=== PATIENT | female | born 1980 | race Caucasian/White ===

== ENCOUNTER → 2016-10-30 | Outpatient (CLI) | payer BC ==
[~2016-10-30] MED LIST: AMIT50TA3 PO; EPP3/2 IM; LYR50 PO; MEDR150I IM; MULTTAB58 PO
--- NOTE | 2016-11-28 06:58 | CODING QUERY NO DIAGNOSIS ---
: 1980 TREATMENT RENDERED WITHOUT A DIAGNOSIS To promote full compliance with coding requirements relating to patient care, physician participation is requested in all cases of accounting reconciliation clerk uncertainty. Please assist us with providing a diagnosis/symptom for the test(s) below: A diagnosis/symptom was not documented on your Order. A valid diagnosis/symptom is required to bill all insurances. Please remember that we are unable to code a diagnosis of rule out, probable, possible, questionable, or suspected. Tests that require a diagnosis: DOS: 10/30/16 * Dexa, Bone Density Axial DIAGNOSIS: Provider Signature: Date: Thank you Ana [facility] [employer] [facility] Once completed, please kindly fax back to [phone] For questions please call [phone]
--- NOTE | 2016-12-15 11:31 | CODING QUERY MEDICAL NECESSITY ---
SUPPORTING DIAGNOSIS NEEDED A supporting diagnosis is required for the test/procedure performed on this patient in order for us to be reimbursed by the patient's insurance. Please provide a supporting diagnosis for the following test/procedure listed below next to the test name along with your signature. *If there is no additional diagnosis for this patient that would support the following test/procedure please document that below next to the test/procedure. Test(s)/Procedure(s) that require a supporting diagnosis: * DXA, BONE DENSITY AXIAL DIAGNOSIS: Provider Signature: Date: Thank you Jennie [facility] [employer] Once completed, please kindly fax back to [phone] For questions please call [phone]
== END | disposition home or self-care (01) ==
LOC: C.MAMM 14:02
PROVIDERS: ATTEND Family Medicine
DX: Z30.9 Encounter for contraceptive management, unspecified (principal); G89.29 Other chronic pain; M54.5 Low back pain; Z79.890 Hormone replacement therapy; Z13.820 Encounter for screening for osteoporosis; F17.200 Nicotine dependence, unspecified, uncomplicated

== ENCOUNTER 2022-07-09 15:21 | Observation (INO) ==
[2022-07-09] MEDS ORDERED: ONDANSETRON INJ 2 MG/ML 2 ML VIAL IV STA (15:43)
[2022-07-09 16:52] LABS: Basophils # (auto) 0.04 K/uL (0-0.2); Basophils % (auto) 0.3 %; Eosinophils # (auto) 0.02 K/uL (0-0.50); Eosinophils % (auto) 0.1 %; Hemoglobin 15.7 g/dl (12.0-16.0); Immature Granulocytes # (auto) 0.05 K/uL (0.00-0.02); Immature Granulocytes % (auto) 0.3 %; Lymphocytes # (auto) 0.79 K/uL (1.2-3.4); Lymphocytes % (auto) 5.2 %; Mean Corpuscular Hemoglobin 31.2 pg (25.0-34.0); Mean Corpuscular Hgb Conc 35.7 g/dL (32.0-36.0); Mean Corpuscular Volume 87.3 fL (80.0-100.0); Mean Platelet Volume 11.3 fL (9.4-12.3); Monocytes # (auto) 0.69 K/uL (0.24-0.82); Monocytes % (auto) 4.5 %; Neutrophils % (auto) 89.6 %; Platelet Count 343 K/uL (130-400); RDW Coefficient of Variation 13.6 % (11.5-14.5); RDW Standard Deviation 43.7 fL (36.4-46.3); Red Blood Count 5.04 M/uL (3.93-5.22); White Blood Count 15.19 K/ul (4.8-10.8)
[2022-07-09] MEDS ORDERED: MoRPHine SULFATE 4 MG/ML 1 ML CARP\\VIAL IV STA ×2 (17:00→19:01)
[2022-07-09 17:17] LABS: iSTAT Creatinine 0.6 mg/dl (0.6-1.3); iSTAT Hemoglobin 13.6 g/dl (12.0-16.0); iSTAT Ionized Calcium 1.06 mmol/l (1.12-1.32)
[2022-07-09 17:18] LABS: Albumin Globulin Ratio 1.5 (0.9-2); Albumin Level 4.4 gm/dl (3.4-5.0); BUN Creatinine Ratio 9.6 (10-20); Bilirubin,Total 0.5 mg/dl (0.2-1.0); Calcium 9.7 mg/dl (8.5-10.1); Creatinine Clr Calc Pharmacy 114.5 ml/min; Est GFR (African American) 116.1 ml/min; Est GFR (Non-African American) 100.2 ml/min; Globulin 2.9 gm/dl (2.5-4.0); Potassium 4.2 mmol/L (3.5-5.1); Total Protein 7.3 gm/dl (6.0-8.3)
--- NOTE | 2022-07-09 18:08 | Emergency Department Note ---
History of Present Illness General Chief complaint: Illness Stated complaint: VOMITING, ABD PAIN, WEAKNESS Time Seen by Provider: 07/09/22 16:51 History of Present Illness Provider complaint: Nausea vomiting abdominal pain Onset (ago): day(s) 2 Maximum Pain Intensity: 10 42-year-old female presents emergency department for nausea vomiting and abdominal pain. Patient reports her symptoms again 2 days ago. She reports she feels chills but no fevers. She denies any headache. Patient is refusing to answer any other questions. Home Medications Medication Instructions Recorded Confirmed Type amitriptyline 50 mg tablet 50 mg PO HS 06/15/21 07/09/22 History epinephrine 0.3 mg/0.3 mL 0.3 mg IM DIRECTED PRN Allergic 06/15/21 07/09/22 History injection, auto-injector Reaction pregabalin 200 mg capsule 200 mg PO TID 06/15/21 07/09/22 History duloxetine 30 mg capsule,delayed See Rx Instructions .Route .COMPLEX 07/09/22 07/09/22 History release voriconazole 200 mg tablet 200 mg PO BID 07/09/22 07/09/22 History voriconazole 50 mg tablet 150 mg PO BID 07/09/22 07/09/22 History Allergies Allergy/AdvReac Type Severity Reaction Status Date / Time bee venom protein (honey bee) Allergy Severe SHORTNESS Verified 07/09/22 19:03 OF BREATH carbamazepine AdvReac Severe severe flu Verified 07/09/22 19:03 like symptoms topiramate AdvReac Intermediate Depression Verified 07/09/22 19:03 ketorolac [From Toradol] AdvReac Unknown Unknown Verified 07/09/22 19:03 Past Med/Surg History Medical History Abdominal pain Blastomycosis Hand laceration No pertinent family history Trigeminal neuralgia Viral meningitis Surgical History No pertinent past surgical history Social History Smoking Status: Never smoker Hx Alcohol Use: No Hx Substance Use: Yes Preferred Language: Canadian Communication Ability: Effective Director Learning Services Required: No Beliefs That Will Affect Care: None Current Living Situation: Spouse Feels Safe at Home: Yes Physical Exam Vital Signs Vital Signs - 24 hr 07/09/22 15:40 07/09/22 17:32 07/09/22 21:00 Temperature 36.2 C L Temperature Source Temporal Artery Scan Pulse Rate 65 Pulse Rate [Right Finger] 90 86 Pulse Rhythm [Right Finger] Regular Pulse Strength [Right Finger] Normal Respiratory Rate 19 18 18 Respiratory Effort / Characteristics Non-Labored Spontaneous Non-Labored Non-Labored Spontaneous Respiratory Depth Normal Normal Normal Respiratory Pattern Regular Regular Regular Blood Pressure 142/56 H Blood Pressure [Left Arm] 120/86 136/81 Blood Pressure Mean 84 Blood Pressure Mean [Left Arm] 97 99 Blood Pressure Position [Left Arm] Lying Pulse Oximetry 100 100 96 Oxygen Delivery Method Room Air Room Air Room Air Sepsis Recent Fever Within 48 Hours No Sepsis New/Unexplained Change in Mental Status N/A Sepsis Action Taken by Nursing No Action Required 07/09/22 21:56 Temperature Temperature Source Pulse Rate Pulse Rate [Right Finger] Pulse Rhythm [Right Finger] Pulse Strength [Right Finger] Respiratory Rate Respiratory Effort / Characteristics Respiratory Depth Respiratory Pattern Blood Pressure Blood Pressure [Left Arm] Blood Pressure Mean Blood Pressure Mean [Left Arm] Blood Pressure Position [Left Arm] Pulse Oximetry Oxygen Delivery Method Room Air Sepsis Recent Fever Within 48 Hours Sepsis New/Unexplained Change in Mental Status Sepsis Action Taken by Nursing Physical Exam HENT: Exam performed. -Head: Normocephalic and atraumatic. EYES: Conjunctivae and EOM are normal. Pupils are equal, round, and reactive to light. Right eye exhibits no discharge. Left eye exhibits no discharge. No scleral icterus. NECK: Normal range of motion. Neck supple. No JVD present. CV: Normal rate, regular rhythm, normal heart sounds and intact distal pulses. There is no peripheral edema. Palpable radial pulses bue. PULM/CHEST: Effort normal and breath sounds normal. No respiratory distress. No stridor. She has no wheezes. She has no rales. -Chest Wall: She exhibits no tenderness. ABD: The abdomen is soft. Bowel sounds are normal. Diffuse tenderness to palpation. There is no rebound, no guarding, MUSC/SKEL: Normal range of motion. There is no peripheral edema, tenderness or deformity. NEURO: She is alert and oriented to person, place, and time. She has normal strength. No cranial nerve deficit or sensory deficit. Coordination and gait normal. GCS eye subscore is 4. GCS verbal subscore is 5. GCS motor subscore is 6. Cerebellar tests wnl. PSYCH: Bizarre affect. Course Course 1650: The patient was evaluated in room D8. A complete history and physical exam was performed Cardiac monitoring: An order was placed for continuous cardiac monitoring. The monitor shows a rate of 90 with sinus rhythm 1930: Vital signs stable. Labs with leukocytosis of 15. Alkaline phosphatase 171. Lipase and AST ALT within normal limits. Imaging shows acute cholecy stitis. Discussed case with bed and general surgery PA he states admit to medicine. Patient be admitted to the [facility] medicine team. Antibiotics IV ordered for the patient. Administered Medications Discontinued Medications Diphenhydramine HCl (Diphenhydramine 50 Mg/Ml Vial) 25 mg IV NOW STA Stop: 07/09/22 19:06 Last Admin: 07/09/22 19:12 Dose: 25 mg Documented By: Ciprofloxacin (Cipro / D5w) 400 mg in 200 mls @ 100 mls/hr IV NOW STA; Protocol Stop: 07/09/22 21:00 Last Infusion: 07/09/22 21:21 Dose: 0 mls/hr Documented By: Admin: 07/09/22 19:16 Dose: 100 mls/hr Documented By: Metronidazole (Flagyl) 500 mg in 100 mls @ 100 mls/hr IV NOW STA Stop: 07/09/22 20:00 Last Infusion: 07/09/22 21:21 Dose: 0 mls/hr Documented By: Admin: 07/09/22 19:44 Dose: 100 mls/hr Documented By: Ioversol (Optiray 350 100ml) 80 ml IV ONCE ONE Stop: 07/09/22 18:42 Last Admin: 07/09/22 18:41 Dose: 80 ml Documented By: JAVIER Metoclopramide HCl (Metoclopramide Hcl Inj 5 Mg/Ml 2 Ml Vial) 5 mg IV ONE ONE Stop: 07/09/22 19:06 Last Admin: 07/09/22 19:11 Dose: 5 mg Documented By: Morphine Sulfate (Morphine Sulfate 4 Mg/Ml 1 Ml Carp\Vial) 2 mg IV NOW STA Stop: 07/09/22 17:01 Last Admin: 07/09/22 17:16 Dose: 2 mg Documented By: ANDREW Morphine Sulfate (Morphine Sulfate 4 Mg/Ml 1 Ml Carp\Vial) 4 mg IV NOW STA Stop: 07/09/22 19:02 Last Admin: 07/09/22 19:16 Dose: 4 mg Documented By: Ondansetron HCl (Ondansetron Inj 2 Mg/Ml 2 Ml Vial) 4 mg IV NOW STA Stop: 07/09/22 15:44 Last Admin: 07/09/22 16:30 Dose: 4 mg Documented By: SHARIF Medical Decision Making Laboratory Data Attestation: I reviewed the patient's lab results. 07/09/22 16:34 07/09/22 16:34 Lab Results 07/09/22 07/09/22 07/09/22 Range/Units 05:19 16:34 16:34 WBC 15.19 H (4.8-10.8) K/ul RBC 5.04 (3.93-5.22) M/uL Hgb 15.7 (12.0-16.0) g/dl POC Hgb (12.0-16.0) g/dl Hct 44.0 (34.1-44.9) % POC Hct (37-47) % MCV 87.3 (80.0-100.0) fL MCH 31.2 (25.0-34.0) pg MCHC 35.7 (32.0-36.0) g/dL RDW Std Deviation 43.7 (36.4-46.3) fL RDW Coeff of Sunshine 13.6 (11.5-14.5) % Plt Count 343 (130-400) K/uL MPV 11.3 (9.4-12.3) fL Immature Gran % (Auto) 0.3 % Neut % (Auto) 89.6 % Lymph % (Auto) 5.2 % Swift % (Auto) 4.5 % Eos % (Auto) 0.1 % Baso % (Auto) 0.3 % Neut # (Auto) 13.60 H (1.4-6.5) K/uL Lymph # (Auto) 0.79 L (1.2-3.4) K/uL Swift # (Auto) 0.69 (0.24-0.82) K/uL Eos # (Auto) 0.02 (0-0.50) K/uL Baso # (Auto) 0.04 (0-0.2) K/uL Immature Gran # (Auto) 0.05 H (0.00-0.02) K/uL PT (9.0-12.0) Seconds INR (0.9-1.1) APTT (21.0-31.0) Seconds PTT Ratio VBG pH (7.36-7.41) VBG pCO2 (38-50) mmHg VBG pO2 mmHg VBG HCO3 mmol/L VBG O2 Saturation % VBG Base Excess mEq/L POC Sodium (135-144) mmol/L Sodium 140 (136-145) mmol/L POC Potassium (3.3-5.0) mmol/L Potassium 4.2 (3.5-5.1) mmol/L POC Chloride (101-112) mmol/L Chloride 106 (98-107) mmol/L Carbon Dioxide 23 (21-32) mmol/L POC Total CO2 (24-31) mmol/L Anion Gap 11 (3-11) POC Anion Gap (16-25) mmol/L POC BUN (7-18) mg/dl BUN 7 (6-23) mg/dl Creatinine 0.73 (0.6-1.2) mg/dl POC Creatinine (0.6-1.3) mg/dl Est Cr Clr Drug Dosing 114.5 ml/min Est GFR ( Amer) 116.1 ml/min Est GFR (Non-Af Amer) 100.2 ml/min BUN/Creatinine Ratio 9.6 L (10-20) Glucose 187 H (70-99(Fasting)) mg/dl POC Glucose (other) (70-99) mg/dl Lactate (0.4-2.0) mmol/L Calcium 9.7 (8.5-10.1) mg/dl POC Ioniz Calcium [place] (1.12-1.32) mmol/l Total Bilirubin 0.5 (0.2-1.0) mg/dl AST 26 (13-39) U/L ALT 23 (7-52) U/L Alkaline Phosphatase 171 H (34-104) U/L Ammonia (18-72) umol/L Total Protein 7.3 (6.0-8.3) gm/dl Albumin 4.4 (3.4-5.0) gm/dl Globulin 2.9 (2.5-4.0) gm/dl Albumin/Globulin Ratio 1.5 (0.9-2) Lipase 8 L (11-82) U/L Urine Color Urine Appearance (Clear) Urine pH (4.5-7.5) Ur Specific [place] (1.000-1.030) Urine Protein (Negative) Urine Glucose (UA) (Negative) Urine Ketones (Negative) Urine Blood (Negative) Urine Nitrite (Negative) Urine Bilirubin (Negative) Urine Urobilinogen (Negative) Ur Leukocyte Esterase (Negative) Urine WBC (Auto) (0-5) /hpf Urine RBC (Auto) (0-4) /hpf U Hyaline Cast (Auto) (0-5) /lpf U Epithel Cells (Auto) (0-5) /lpf Urine Bacteria (Auto) (Negative) Ur Renal Epithelial Cell Urine Mucus (None Prsent) Salicylates (3.0-30) mg/dl Urine Opiates Screen (Neg) Ur Methadone, Qual (Neg) Acetaminophen (10-30) ug/ml Urine Barbiturates (Neg) Ur Phencyclidine (PCP) (Neg) U Amphetamin/Meth Scrn (Neg) MDMA (Ecstasy) Screen (Neg) U Benzodiazepines Scrn (Neg) Ur Cocaine Metabolite (Neg) U Marijuana (THC) Screen (Neg) Adenovirus (PCR) Not Detected (NotDetected) B. pertussis DNA (PCR) Not Detected (NotDetected) B.parapertussis DNA PCR Not Detected (NotDetected) C. pneumoniae DNA (PCR) Not Detected (NotDetected) Coronavirus OC43 (PCR) Not Detected (NotDetected) Coronavirus HKU1 (PCR) Not Detected (NotDetected) Coronavirus 229E (PCR) Not Detected (NotDetected) SARS-CoV-2 (PCR) Not Detected (NotDetected) Coronavirus NL63 (PCR) Not Detected (NotDetected) Human Metapneumovir PCR Not Detected (NotDetected) Influenza Type A (PCR) Not Detected (NotDetected) Influenza Type B (PCR) Not Detected (NotDetected) M. pneumoniae (PCR) Not Detected (NotDetected) Parainfluenza 1 (PCR) Not Detected (NotDetected) Parainfluenza 2 (PCR) Not Detected (NotDetected) Parainfluenza 3 (PCR) Not Detected (NotDetected) Parainfluenza 4 (PCR) Not Detected (NotDetected) RSV (PCR) Not Detected (NotDetected) Entero/Rhino (PCR) Not Detected (NotDetected) 07/09/22 07/09/22 07/09/22 Range/Units 17:05 18:13 18:13 WBC (4.8-10.8) K/ul RBC (3.93-5.22) M/uL Hgb (12.0-16.0) g/dl POC Hgb 13.6 (12.0-16.0) g/dl Hct (34.1-44.9) % POC Hct 40 (37-47) % MCV (80.0-100.0) fL MCH (25.0-34.0) pg MCHC (32.0-36.0) g/dL RDW Std Deviation (36.4-46.3) fL RDW Coeff of Sunshine (11.5-14.5) % Plt Count (130-400) K/uL MPV (9.4-12.3) fL Immature Gran % (Auto) % Neut % (Auto) % Lymph % (Auto) % Swift % (Auto) % Eos % (Auto) % Baso % (Auto) % Neut # (Auto) (1.4-6.5) K/uL Lymph # (Auto) (1.2-3.4) K/uL [place] # (Auto) (0.24-0.82) K/uL Eos # (Auto) (0-0.50) K/uL Baso # (Auto) (0-0.2) K/uL Immature Gran # (Auto) (0.00-0.02) K/uL PT 11.3 (9.0-12.0) Seconds INR 1.1 (0.9-1.1) APTT 21.3 (21.0-31.0) Seconds PTT Ratio 0.8 VBG pH (7.36-7.41) VBG pCO2 (38-50) mmHg VBG pO2 mmHg VBG HCO3 mmol/L VBG O2 Saturation % VBG Base Excess mEq/L POC Sodium 141 (135-144) mmol/L Sodium (136-145) mmol/L POC Potassium 4.0 (3.3-5.0) mmol/L Potassium (3.5-5.1) mmol/L POC Chloride 107 (101-112) mmol/L Chloride (98-107) mmol/L Carbon Dioxide (21-32) mmol/L POC Total CO2 22 L (24-31) mmol/L Anion Gap (3-11) POC Anion Gap 17.0 (16-25) mmol/L POC BUN 6 L (7-18) mg/dl BUN (6-23) mg/dl Creatinine (0.6-1.2) mg/dl POC Creatinine 0.6 (0.6-1.3) mg/dl Est Cr Clr Drug Dosing ml/min Est GFR ( Amer) ml/min Est GFR (Non-Af Amer) ml/min BUN/Creatinine Ratio (10-20) Glucose (70-99(Fasting)) mg/dl POC Glucose (other) 172 H (70-99) mg/dl Lactate 1.7 (0.4-2.0) mmol/L Calcium (8.5-10.1) mg/dl POC Ioniz Calcium [place] 1.06 L (1.12-1.32) mmol/l Total Bilirubin (0.2-1.0) mg/dl AST (13-39) U/L ALT (7-52) U/L Alkaline Phosphatase (34-104) U/L Ammonia (18-72) umol/L Total Protein (6.0-8.3) gm/dl Albumin (3.4-5.0) gm/dl Globulin (2.5-4.0) gm/dl Albumin/Globulin Ratio (0.9-2) Lipase (11-82) U/L Urine Color Urine Appearance (Clear) Urine pH (4.5-7.5) Ur Specific [place] (1.000-1.030) Urine Protein (Negative) Urine Glucose (UA) (Negative) Urine Ketones (Negative) Urine Blood (Negative) Urine Nitrite (Negative) Urine Bilirubin (Negative) Urine Urobilinogen (Negative) Ur Leukocyte Esterase (Negative) Urine WBC (Auto) (0-5) /hpf Urine RBC (Auto) (0-4) /hpf U Hyaline Cast (Auto) (0-5) /lpf U Epithel Cells (Auto) (0-5) /lpf Urine Bacteria (Auto) (Negative) Ur Renal Epithelial Cell Urine Mucus (None Prsent) Salicylates (3.0-30) mg/dl Urine Opiates Screen (Neg) Ur Methadone, Qual (Neg) Acetaminophen (10-30) ug/ml Urine Barbiturates (Neg) Ur Phencyclidine (PCP) (Neg) U Amphetamin/Meth Scrn (Neg) MDMA (Ecstasy) Screen (Neg) U Benzodiazepines Scrn (Neg) Ur Cocaine Metabolite (Neg) U Marijuana (THC) Screen (Neg) Adenovirus (PCR) (NotDetected) B. pertussis DNA (PCR) (NotDetected) B.parapertussis DNA PCR (NotDetected) C. pneumoniae DNA (PCR) (NotDetected) Coronavirus OC43 (PCR) (NotDetected) Coronavirus HKU1 (PCR) (NotDetected) Coronavirus 229E (PCR) (NotDetected) SARS-CoV-2 (PCR) (NotDetected) Coronavirus NL63 (PCR) (NotDetected) Human Metapneumovir PCR (NotDetected) Influenza Type A (PCR) (NotDetected) Influenza Type B (PCR) (NotDetected) M. pneumoniae (PCR) (NotDetected) Parainfluenza 1 (PCR) (NotDetected) Parainfluenza 2 (PCR) (NotDetected) Parainfluenza 3 (PCR) (NotDetected) Parainfluenza 4 (PCR) (NotDetected) RSV (PCR) (NotDetected) Entero/Rhino (PCR) (NotDetected) 07/09/22 07/09/22 07/09/22 Range/Units 18:13 18:13 18:13 WBC (4.8-10.8) K/ul RBC (3.93-5.22) M/uL Hgb (12.0-16.0) g/dl POC Hgb (12.0-16.0) g/dl Hct (34.1-44.9) % POC Hct (37-47) % MCV (80.0-100.0) fL MCH (25.0-34.0) pg MCHC (32.0-36.0) g/dL RDW Std Deviation (36.4-46.3) fL RDW Coeff of Sunshine (11.5-14.5) % Plt Count (130-400) K/uL MPV (9.4-12.3) fL Immature Gran % (Auto) % Neut % (Auto) % Lymph % (Auto) % [place] % (Auto) % Eos % (Auto) % Baso % (Auto) % Neut # (Auto) (1.4-6.5) K/uL Lymph # (Auto) (1.2-3.4) K/uL [place] # (Auto) (0.24-0.82) K/uL Eos # (Auto) (0-0.50) K/uL Baso # (Auto) (0-0.2) K/uL Immature Gran # (Auto) (0.00-0.02) K/uL PT (9.0-12.0) Seconds INR (0.9-1.1) APTT (21.0-31.0) Seconds PTT Ratio VBG pH 7.54 H (7.36-7.41) VBG pCO2 25 L (38-50) mmHg VBG pO2 48 mmHg VBG HCO3 21 mmol/L VBG O2 Saturation 88.6 % VBG Base Excess 0.3 mEq/L POC Sodium (135-144) mmol/L Sodium (136-145) mmol/L POC Potassium (3.3-5.0) mmol/L Potassium (3.5-5.1) mmol/L POC Chloride (101-112) mmol/L Chloride (98-107) mmol/L Carbon Dioxide (21-32) mmol/L POC Total CO2 (24-31) mmol/L Anion Gap (3-11) POC Anion Gap (16-25) mmol/L POC BUN (7-18) mg/dl BUN (6-23) mg/dl Creatinine (0.6-1.2) mg/dl POC Creatinine (0.6-1.3) mg/dl Est Cr Clr Drug Dosing ml/min Est GFR ( Amer) ml/min Est GFR (Non-Af Amer) ml/min BUN/Creatinine Ratio (10-20) Glucose (70-99(Fasting)) mg/dl POC Glucose (other) (70-99) mg/dl Lactate (0.4-2.0) mmol/L Calcium (8.5-10.1) mg/dl POC Ioniz Calcium [place] (1.12-1.32) mmol/l Total Bilirubin (0.2-1.0) mg/dl AST (13-39) U/L ALT (7-52) U/L Alkaline Phosphatase (34-104) U/L Ammonia 33.0 (18-72) umol/L Total Protein (6.0-8.3) gm/dl Albumin (3.4-5.0) gm/dl Globulin (2.5-4.0) gm/dl Albumin/Globulin Ratio (0.9-2) Lipase (11-82) U/L Urine Color Urine Appearance (Clear) Urine pH (4.5-7.5) Ur Specific [place] (1.000-1.030) Urine Protein (Negative) Urine Glucose (UA) (Negative) Urine Ketones (Negative) Urine Blood (Negative) Urine Nitrite (Negative) Urine Bilirubin (Negative) Urine Urobilinogen (Negative) Ur Leukocyte Esterase (Negative) Urine WBC (Auto) (0-5) /hpf Urine RBC (Auto) (0-4) /hpf U Hyaline Cast (Auto) (0-5) /lpf U Epithel Cells (Auto) (0-5) /lpf Urine Bacteria (Auto) (Negative) Ur Renal Epithelial Cell Urine Mucus (None Prsent) Salicylates < 3.0 L (3.0-30) mg/dl Urine Opiates Screen (Neg) Ur Methadone, Qual (Neg) Acetaminophen < 3 L (10-30) ug/ml Urine Barbiturates (Neg) Ur Phencyclidine (PCP) (Neg) U Amphetamin/Meth Scrn (Neg) MDMA (Ecstasy) Screen (Neg) U Benzodiazepines Scrn (Neg) Ur Cocaine Metabolite (Neg) U Marijuana (THC) Screen (Neg) Adenovirus (PCR) (NotDetected) B. pertussis DNA (PCR) (NotDetected) B.parapertussis DNA PCR (NotDetected) C. pneumoniae DNA (PCR) (NotDetected) Coronavirus OC43 (PCR) (NotDetected) Coronavirus HKU1 (PCR) (NotDetected) Coronavirus 229E (PCR) (NotDetected) SARS-CoV-2 (PCR) (NotDetected) Coronavirus NL63 (PCR) (NotDetected) Human Metapneumovir PCR (NotDetected) Influenza Type A (PCR) (NotDetected) Influenza Type B (PCR) (NotDetected) M. pneumoniae (PCR) (NotDetected) Parainfluenza 1 (PCR) (NotDetected) Parainfluenza 2 (PCR) (NotDetected) Parainfluenza 3 (PCR) (NotDetected) Parainfluenza 4 (PCR) (NotDetected) RSV (PCR) (NotDetected) Entero/Rhino (PCR) (NotDetected) 07/09/22 07/09/22 Range/Units 19:39 19:39 WBC (4.8-10.8) K/ul RBC (3.93-5.22) M/uL Hgb (12.0-16.0) g/dl POC Hgb (12.0-16.0) g/dl Hct (34.1-44.9) % POC Hct (37-47) % MCV (80.0-100.0) fL MCH (25.0-34.0) pg MCHC (32.0-36.0) g/dL RDW Std Deviation (36.4-46.3) fL RDW Coeff of Sunshine (11.5-14.5) % Plt Count (130-400) K/uL MPV (9.4-12.3) fL Immature Gran % (Auto) % Neut % (Auto) % Lymph % (Auto) % [place] % (Auto) % Eos % (Auto) % Baso % (Auto) % Neut # (Auto) (1.4-6.5) K/uL Lymph # (Auto) (1.2-3.4) K/uL [place] # (Auto) (0.24-0.82) K/uL Eos # (Auto) (0-0.50) K/uL Baso # (Auto) (0-0.2) K/uL Immature Gran # (Auto) (0.00-0.02) K/uL PT (9.0-12.0) Seconds INR (0.9-1.1) APTT (21.0-31.0) Seconds PTT Ratio VBG pH (7.36-7.41) VBG pCO2 (38-50) mmHg VBG pO2 mmHg VBG HCO3 mmol/L VBG O2 Saturation % VBG Base Excess mEq/L POC Sodium (135-144) mmol/L Sodium (136-145) mmol/L POC Potassium (3.3-5.0) mmol/L Potassium (3.5-5.1) mmol/L POC Chloride (101-112) mmol/L Chloride (98-107) mmol/L Carbon Dioxide (21-32) mmol/L POC Total CO2 (24-31) mmol/L Anion Gap (3-11) POC Anion Gap (16-25) mmol/L POC BUN (7-18) mg/dl BUN (6-23) mg/dl Creatinine (0.6-1.2) mg/dl POC Creatinine (0.6-1.3) mg/dl Est Cr Clr Drug Dosing ml/min Est GFR ( Amer) ml/min Est GFR (Non-Af Amer) ml/min BUN/Creatinine Ratio (10-20) Glucose (70-99(Fasting)) mg/dl POC Glucose (other) (70-99) mg/dl Lactate (0.4-2.0) mmol/L Calcium (8.5-10.1) mg/dl POC Ioniz Calcium [place] (1.12-1.32) mmol/l Total Bilirubin (0.2-1.0) mg/dl AST (13-39) U/L ALT (7-52) U/L Alkaline Phosphatase (34-104) U/L Ammonia (18-72) umol/L Total Protein (6.0-8.3) gm/dl Albumin (3.4-5.0) gm/dl Globulin (2.5-4.0) gm/dl Albumin/Globulin Ratio (0.9-2) Lipase (11-82) U/L Urine Color Yellow Urine Appearance Clear (Clear) Urine pH 8.5 H (4.5-7.5) Ur Specific [place] > 1.045 H (1.000-1.030) Urine Protein 1+ H (Negative) Urine Glucose (UA) Negative (Negative) Urine Ketones 4+ H (Negative) Urine Blood Negative (Negative) Urine Nitrite Negative (Negative) Urine Bilirubin Negative (Negative) Urine Urobilinogen Negative (Negative) Ur Leukocyte Esterase Negative (Negative) Urine WBC (Auto) 5-10 H (0-5) /hpf Urine RBC (Auto) 0-4 (0-4) /hpf U Hyaline Cast (Auto) 5-10 H (0-5) /lpf U Epithel Cells (Auto) >30 H (0-5) /lpf Urine Bacteria (Auto) 1+ H (Negative) Ur Renal Epithelial Cell Not Reportable Urine Mucus Present A (None Prsent) Salicylates (3.0-30) mg/dl Urine Opiates Screen Pos H (Neg) Ur Methadone, Qual Neg (Neg) Acetaminophen (10-30) ug/ml Urine Barbiturates Neg (Neg) Ur Phencyclidine (PCP) Neg (Neg) U Amphetamin/Meth Scrn Neg (Neg) MDMA (Ecstasy) Screen Neg (Neg) U Benzodiazepines Scrn Neg (Neg) Ur Cocaine Metabolite Neg (Neg) U Marijuana (THC) Screen Pos H (Neg) Adenovirus (PCR) (NotDetected) B. pertussis DNA (PCR) (NotDetected) B.parapertussis DNA PCR (NotDetected) C. pneumoniae DNA (PCR) (NotDetected) Coronavirus OC43 (PCR) (NotDetected) Coronavirus HKU1 (PCR) (NotDetected) Coronavirus 229E (PCR) (NotDetected) SARS-CoV-2 (PCR) (NotDetected) Coronavirus NL63 (PCR) (NotDetected) Human Metapneumovir PCR (NotDetected) Influenza Type A (PCR) (NotDetected) Influenza Type B (PCR) (NotDetected) M. pneumoniae (PCR) (NotDetected) Parainfluenza 1 (PCR) (NotDetected) Parainfluenza 2 (PCR) (NotDetected) Parainfluenza 3 (PCR) (NotDetected) Parainfluenza 4 (PCR) (NotDetected) RSV (PCR) (NotDetected) Entero/Rhino (PCR) (NotDetected) Imaging Data Radiologist's Impression: Abdomen/Pelvis CT 07/09/22 16:[address] WITH IV CONTRAST CT DOSE: 839.62 mGy.cm HISTORY: Nausea. Vomiting. Generalized abdominal pain. TECHNIQUE: Multiaxial CT images of the abdomen and pelvis were performed following the use of intravenous contrast. A dose lowering technique was utilized adhering to the principles of ALARA. COMPARISON STUDY: Abdomen and pelvis CT 09/01/2013. PET CT 07/22/2021. FINDINGS: The lung bases are clear. No pneumoperitoneum. No pneumatosis. No suspicious lytic are blastic osseous lesions. There is mild motion artifact. Fo jose miguel hypodensity within segment IVb of the liver favors focal fat. No definite hepatic or splenic masses. The adrenal glands, pancreas, and right kidney are unremarkable. Stable 6 mm hypodense lesion within the left kidney. This favors a cyst but is technically too small to characterize. No hydronephrosis. The bladder, uterus, bilateral adnexa are within normal limits. No retroperitoneal or pelvic lymphadenopathy. The main portal vein is patent. Normal caliber abdominal aorta. The gallbladder is mildly distended with diffuse gallbladder wall thickening/edema and pericholecystic fluid. There is a small amount of sludge within the gallbladder. An acute cholecystitis would be the diagnosis of exclusion. Trace pelvic free fluid. This may be physiologic. A few colonic diverticula. No evidence for acute diverticulitis. No bowel wall thickening or obstruction. Normal appendix. Fluid-filled nondilated colon. IMPRESSION: 1. The gallbladder is mildly distended with diffuse gallbladder wall thickening/edema and pericholecystic fluid. There is a small amount of sludge within the gallbladder. An acute cholecystitis would be the diagnosis of ex clusion. 2. Fluid-filled nondilated colon. This may represent a diarrheal illness/gastr oenteritis. 3. Normal appendix. 4. No evidence for a bowel obstruction. ACT 112: Negative or not required by law. Electronically signed by: Polo Clayton M.D. 07/09/2022 6:[address] 07/09/22 16:[address] DOSE: 773.57 mGy.cm HISTORY: confusion TECHNIQUE: Multiaxial CT images of the head were performed without the use of intravenous contrast. Automated exposure control was utilized for this study. A dose lowering technique was utilized adhering to the principles of ALARA. Comparison: Head CT 09/06/2013. Findings: The paranasal sinuses and mastoid air cells are clear. Prior suboccipital craniectomy. No calvarial fractures. The ventricles and sulci are within normal limits. There is no mass, hematoma, midline shift, or acute inf arct. Impression: No acute intracranial abnormality. ACT 112: Negative or not required by law. Electronically signed by: Polo Clayton M.D. 07/09/2022 6:54 PM Chest X-Ray 07/09/22 16:59 XR chest 1V portable HISTORY: Altered mental status. Atypical chest pain. COMPARISON: Chest 07/29/2021. FINDINGS: The lungs are clear. Cardiac silhouette is normal in size. No pleural effusions. No pneumothorax. IMPRESSION: No acute process. ACT 112: Negative or not required by law. Electronically signed by: Polo Clayton M.D. 07/09/2022 6:08 PM MDM Narrative Vital signs stable. Labs with leukocytosis of 15. Alkaline phosphatase 171. Lipase and AST ALT within normal limits. Imaging shows acute cholecystitis. Discussed case with bed and general surgery PA he states admit to medicine. Patient be admitted to the [facility] medicine team. Antibiotics IV ordered for the patient. Impression & Plan Acute cholecystitis Discharge Plan Visit Data Chief Complaint: Illness Stated Complaint: VOMITING, ABD PAIN, WEAKNESS ED Provider: Javed Wang Discharge Problem: Acute cholecystitis Patient Disposition: Admitted As Inpatient Discharge Instructions Interventions: ED Discharge Assessment Last Done: 07/09/22 21:56 Forms Stand Alone Forms: My [facility] Prescriptions Prescriptions: No Action voriconazole 50 mg tablet 150 mg PO BID Rx Instructions: TOTAL DOSE 350 MG--TAKES WITH 200 MG TAB. voriconazole 200 mg tablet 200 mg PO BID Rx Instructions: TOTAL DOSE 350 MG--TAKES WITH 3-50 MG TAB.S duloxetine 30 mg capsule,delayed release(DR/EC) See Rx Instructions .ROUTE .COMPLEX Rx Instructions: 30 mg orally; TAKES 30 MG QAM, THEN 60 MG QPM. amitriptyline 50 mg tablet 50 mg PO HS epinephrine 0.3 mg/0.3 mL auto-injector 0.3 mg IM DIRECTED PRN (Reason: Allergic Reaction) pregabalin 200 mg capsule 200 mg PO TID Referrals Referrals: Tess Mchugh DO [Primary Care Provider] -
[2022-07-09 18:27] LABS: Base Excess VBG 0.3 mEq/L; HCO3 VBG 21 mmol/L; Oxygen Saturation VBG 88.6 %; PCO2 VBG 25 mmHg (38-50); PO2 VBG 48 mmHg; pH VBG 7.54 (7.36-7.41)
[2022-07-09] MEDS ORDERED: OPTIRAY 350 100ml IV ONE (18:41)
[2022-07-09 18:43] LABS: Acetaminophen < 3 ug/ml (10-30); INR 1.1 (0.9-1.1); Partial Thromboplastin Ratio 0.8; Partial Thromboplastin Time 21.3 Seconds (21.0-31.0); Prothrombin Time 11.3 Seconds (9.0-12.0); Salicylate < 3.0 mg/dl (3.0-30)
--- NOTE | 2022-07-09 18:55 | CT Scan Report ---
ABDOMEN AND PELVIS CT WITH IV CONTRAST CT DOSE: 839.62 mGy.cm HISTORY: Nausea. Vomiting. Generalized abdominal pain. TECHNIQUE: Multiaxial CT images of the abdomen and pelvis were performed following the use of intrave nous contrast. A dose lowering technique was utilized adhering to the principles of ALARA. COMPARISON STUDY: Abdomen and pelvis CT 09/01/2013. PET CT 07/22/2021. FINDINGS: The lung bases are clear. No pneumoperitoneum. No pneumatosis. No suspicious lytic are karlos tic osseous lesions. There is mild motion artifact. Focal hypodensity within segment IVb of the liver favors focal fat. No definite hepatic or splenic masses. The adrenal glands, pancreas, and right kid doris are unremarkable. Stable 6 mm hypodense lesion within the left kidney. This favors a cyst but is technically too small to characterize. No hydronephrosis. The bladder, uterus, bilateral adnexa are w ithin normal limits. No retroperitoneal or pelvic lymphadenopathy. The main portal vein is patent. No rmal caliber abdominal aorta. The gallbladder is mildly distended with diffuse gallbladder wall thick ening/edema and pericholecystic fluid. There is a small amount of sludge within the gallbladder. An a cute cholecystitis would be the diagnosis of exclusion. Trace pelvic free fluid. This may be physiolo gic. A few colonic diverticula. No evidence for acute diverticulitis. No bowel wall thickening or obs truction. Normal appendix. Fluid-filled nondilated colon. IMPRESSION: 1. The gallbladder is mildly distended with diffuse gallbladder wall thickening/edema and pericholecy stic fluid. There is a small amount of sludge within the gallbladder. An acute cholecystitis would be the diagnosis of exclusion. 2. Fluid-filled nondilated colon. This may represent a diarrheal illness/gastroenteritis. 3. Normal appendix. 4. No evidence for a bowel obstruction. ACT 112: Negative or not required by law. Electronically signed by: Polo Clayton M.D. 07/09/2022 6:52 PM
--- NOTE | 2022-07-09 18:56 | CT Scan Report ---
HEAD CT NONCONTRAST CT DOSE: 773.57 mGy.cm HISTORY: confusion TECHNIQUE: Multiaxial CT images of the head were performed without the use of intravenous contrast. A utomated exposure control was utilized for this study. A dose lowering technique was utilized adheri ng to the principles of ALARA. Comparison: Head CT 09/06/2013. Findings: The paranasal sinuses and mastoid air cells are clear. Prior suboccipital craniectomy. No c alvarial fractures. The ventricles and sulci are within normal limits. There is no mass, hematoma, mi dline shift, or acute infarct. Impression: No acute intracranial abnormality. ACT 112: Negative or not required by law. Electronically signed by: Polo Clayton M.D. 07/09/2022 6:54 PM
[2022-07-09] MEDS ORDERED: metroNIDAZOLE 500 MG/100 ML BAG IV STA (19:01)
[2022-07-09] MEDS ORDERED: CIPROFLOXACIN / D5W 400 MG/200 ML BAG IV STA (19:01)
[2022-07-09] MEDS ORDERED: METOCLOPRAMIDE HCL INJ 5 MG/ML 2 ML VIAL IV ONE (19:05)
[2022-07-09] MEDS ORDERED: diphenhydrAMINE 50 MG/ML VIAL IV STA (19:05)
[2022-07-09 19:11] LABS: Adenovirus PCR Not Detected (NotDetected); Bordetella parapertussis PCR Not Detected (NotDetected); Bordetella pertussis PCR Not Detected (NotDetected); Chlamydia pneumoniae PCR Not Detected (NotDetected); Coronavirus 229E PCR Not Detected (NotDetected); Coronavirus CoV-2 (COVID19)PCR Not Detected (NotDetected); Coronavirus HKU1 PCR Not Detected (NotDetected); Coronavirus NL63 PCR Not Detected (NotDetected); Coronavirus OC43PCR Not Detected (NotDetected); Human Metapneumovirus PCR Not Detected (NotDetected); Influenza A PCR Not Detected (NotDetected); Influenza B PCR Not Detected (NotDetected); Mycoplasma pneumoniae PCR Not Detected (NotDetected); Parainfluenza Virus 1 PCR Not Detected (NotDetected); Parainfluenza Virus 2 PCR Not Detected (NotDetected); Parainfluenza Virus 3 PCR Not Detected (NotDetected); Parainfluenza Virus 4 PCR Not Detected (NotDetected); Respiratory Syncytial VirusPCR Not Detected (NotDetected); Rhinovirus/Enterovirus PCR Not Detected (NotDetected)
--- NOTE | 2022-07-09 19:53 | Surgery Consultation ---
Date of Consultation July 09, 2022 Assessment & Plan (1) Abdominal pain: I discussed the case with the treating emergency room physician and see he is having the patient admitted on the hospitalist service. Regarding the patient's abdominal pain the etiology has not been definitively ascertained. By CAT scan the patient may have an element of gastroenteritis but certainly acute cholecystitis has not been excluded. We therefore recommend proceeding as follows: To further delineate the patient's possibility of acute cholecystitis we will obtain a gallbladder ultrasound (this has been ordered). If the gallbladder ultrasound does not convincingly show evidence of acute cholecystitis consideration can be given to performing a HIDA scan We will follow serial labs. Although the patient does not have elevated LFTs or elevated lipase we will repeat these values in the morning to see if there is any change and act accordingly (repeat labs have been ordered) Provide analgesics Provide antiemetics Provide IV fluid for hydration Feel it is reasonable for patient to have clear liquids this evening up until midnight which I have ordered. I then made the patient n.p.o. after midnight in case she would require cholecystectomy tomorrow. Would recommend continuing patient on antibiotics. Cipro and Flagyl have been initiated by the treating emergency room physician and these can be continued at the discretion of the admitting service. As noted above is not clear if the patient has acute cholecystitis and we await the above pending studies. We will make her n.p.o. after midnight that way if it is determined she does have cholecystitis she will be ready for surgery. As noted above if the ultrasound is inconclusive we will consider performing a HIDA scan. Further recommendations will be made based on her clinical course as unfolds and pending studies as noted above. History of Present Illness Reason for Consultation: Abdominal pain History of Present Illness This is a 42-year-old female who presented to [facility] emergency department secondary to abdominal pain along with nausea and vomiting. The patient notes that she was in her usual state of health feeling fine until yesterday approximately 6 hours after eating a [employer] salad she had a gradual feeling of being unwell and developed some nausea and vomiting. Patient says that her nausea and vomiting persisted and she also developed some right upper quadrant as well as epigastric abdominal pain. She says that the pain did not radiate and she did not note any modifying factors. She denies any fevers, shakes, or chills. No close contacts have been ill. In addition to the above- noted symptoms she did have some diarrhea. I asked the patient about eating habits over the past several months and she denies any postprandial pain during this timeframe. It is noteworthy mention that she has never had any prior abdominal surgeries. In addition, the patient was noted to have a lung mass back in July of this year. This mass was biopsied and she received a diagnosis of blastomycosis and she has been on an antifungal in the form of voriconazole since that time. Since arrival to the emergency department the patient has had labs and imaging which I independently reviewed. CBC revealed white blood cell count was elevated at 15.1. Hemoglobin, hematocrit, platelet count were all within normal range. Coagulation studies were noted to be normal. A chemistry profile showed sodium and potassium were normal. Her BUN and creatinine were also noted to be normal. Lactic acid was nonelevated. Total bilirubin and transaminases were nonelevated. Her lipase was not elevated. Alkaline phosphatase was slightly elevated at 171. Patient did have toxicology for salicylates as well as acetaminophen checked which were nonelevated. The patient was checked for various viral serologies all of which were negative (this included adenovirus, pertussis, parainfluenza, RSV, enterovirus, influenza a and B, and COVID). Imaging was performed which was also independent reviewed and chest x-ray showed no evidence of pneumonia. A CT scan of the head showed no acute intracranial abnormalities.A CT scan of the abdomen pelvis was performed. The gallbladder is noted to be mildly distended with diffuse gallbladder wall thickening and some pericholecystic fluid noted small amount of sludge was noted in the gallbladder. Acute cholecystitis could not definitively be ascertained from the study. The patient's colon also appeared fluid-filled and nondilated perhaps representing an element of gastroenteritis. Her appendix was noted be normal in the study and there is no evidence of bowel obstruction. Since arrival to the hospital the patient has received analgesics in the form of 6 mg of morphine.She has received antiemetics in the form of Reglan and Zofran. She is also received Benadryl. Antibiotics in form of Cipro and Flagyl have been initiated. At the time of my interview she was resting comfortably in bed and she was in no distress. Her pain had improved. Allergies Allergy/AdvReac Type Severity Reaction Status Date / Time bee venom protein (honey bee) Allergy Severe SHORTNESS Verified 07/09/22 19:03 OF BREATH carbamazepine AdvReac Severe severe flu Verified 07/09/22 19:03 like symptoms topiramate AdvReac Intermediate Depression Verified 07/09/22 19:03 ketorolac [From Toradol] AdvReac Unknown Unknown Verified 07/09/22 19:03 Home Medications Medication Instructions Recorded Confirmed Type amitriptyline 50 mg tablet 50 mg PO HS 06/15/21 07/09/22 History epinephrine 0.3 mg/0.3 mL 0.3 mg IM DIRECTED PRN Allergic 06/15/21 07/09/22 History injection, auto-injector Reaction pregabalin 200 mg capsule 200 mg PO TID 06/15/21 07/09/22 History duloxetine 30 mg capsule,delayed See Rx Instructions .Route .COMPLEX 07/09/22 07/09/22 History release voriconazole 200 mg tablet 200 mg PO BID 07/09/22 07/09/22 History voriconazole 50 mg tablet 150 mg PO BID 07/09/22 07/09/22 History Patient History Medical History Abdominal pain Blastomycosis Hand laceration No pertinent family history Trigeminal neuralgia Viral meningitis Surgical History No pertinent past surgical history Social History Smoking Status: Never smoker Hx Alcohol Use: No Hx Substance Use: Yes Preferred Language: Slovenian Communication Ability: Effective Commissioning Manager Required: No Beliefs That Will Affect Care: None Current Living Situation: Spouse Feels Safe at Home: Yes Review of Systems Constitutional: no fever and no chills Eyes: no eye pain Ear, Nose, Mouth, Throat: no ear pain Respiratory: no cough and no dyspnea Cardiovascular: no chest pain Gastrointestinal: as per Subjective / HPI, + abdominal pain, + nausea, + vomiting and + diarrhea/loose stools Genitourinary: no dysuria Musculoskeletal: no back pain Integumentary: no rash Neurologic: no localized weakness Physical Exam Constitutional: WD/WN, vitals as above Eyes: + anicteric sclerae ENMT: Ears: no hearing impairment Mouth: no oropharynx abnormality Neck: trachea midline Respiratory: normal respiratory effort, lungs clear to auscultation Cardiovascular: Rate/Rhythm: regular rate and regular rhythm Vessels: dorsalis pedis pulses present and radial pulses present Gastrointestinal (Abdomen): Abdomen is soft, nonrigid, and nondistended. Bowel sounds are present. There is minimal pain with palpation in the epigastric and right upper quadrant pain at the time of my exam. There is no rebound tenderness or guarding. Musculoskeletal: No calf tenderness Skin: no rashes Neurologic: moves all extremities Psychiatric: A+Ox3, euthymic affect Results & Data ([facility]) Vital Signs (Past 12 Hours) Vital Signs Temp Pulse Pulse Resp BP BP Pulse Ox 07/09/22 17:32 90 18 120/86 100 07/09/22 15:40 36.2 C L 65 19 142/56 H 100 O2 Del Method 07/09/22 17:32 Room Air 07/09/22 15:40 Room Air PG Care Time/CCT Total # of Minutes Spent Total Time Spent with Patient: Total time spent is greater than 50% in coordination of care (as documented) at patient's floor/unit and/or counseling patient: Coding Level of Care Code INP/OBS CONSULT LVL 5, 80 MIN Diagnoses Abdominal pain R10.9
--- NOTE | 2022-07-09 20:27 | History & Physical Report ---
Date of Service July 09, 2022 Assessment & Plan (1) Abdominal pain: Plan: - 2 days of abdominal pain, nausea, vomiting, and diarrhea after eating a [employer] salad two days ago. - WBC 15 with left shift, lactate 1.7. - CTAP: The gallbladder is mildly distended with diffuse gallbladder wall thickening/edema and pericholecystic fluid. There is a small amount of sludge within the gallbladder. An acute cholecystitis would be the diagnosis of exclusion. Fluid-filled nondilated colon. This may represent a diarrheal illness/gastroenteritis. - Diff dx at this point is gastroenteritis and/or cholecystitis. - Waiting for GB U/S to assist with definitive diagnosis. If cholecystitis is not definitively diagnosed on U/S, could consider HIDA scan. - Empirically placed on ciprofloxacin + Flagyl, and made NPO at midnight in case of OR tomorrow. - IVF, antiemetics and analgesics ordered. - Repeat CBC, CMP, lipase in AM. (2) Blastomycosis: Plan: - Abnormal lung mass biopsied in July negative for malignancy, + for blastomycosis. Is on voriconazole 350 mg BID. (3) Trigeminal neuralgia: Plan: - Continue amitriptyline, duloxetine, pregabalin. Plan - Admit to med/surg. - SCDs for VTE ppx. - Full Code. History of Present Illness Chief Complaint: abdominal pain x 2 days Primary Care Provider: DO Julia Hillman Arsalan is a 42 y/o female with a past medical history of blastomycosis, trigeminal neuralgia, migraine headaches, and tobacco use disorder is presenting today with nausea, vomiting, and abdominal pain both been going on for 2 days. She has noticed chills at home but no fevers. This all began 2 days ago after she ate a salad from [employer]. She ate it around 1 pm yesterday and several hours later woke up with a strong pain in he epigastric region and immediately vomited up the salad, undigested. There are no sick contacts at home, and she denies a previous history of similar symptoms after ea ting. She has not noticed that her stools are dark, bloody, or mame colored. On presentation, vital signs are within normal limits and stable. Labs notable for WBC of 15 with left shift, Lactate 1.7, alk phos 171. BSG 187. No electrolyte abnormalities. Renal function at baseline. Urine does not appear infected. Toxicology report pending. CT A/P shows the gallbladder that is mildly distended with diffuse gallbladder wall thickening and edema with pericholecystic fluid and a small amount of sludge within the gallbladder as well as a fluid-filled nondilated colon. Normal appendix, no evidence of bowel obstruction. Head CT and CXR unremarkable. Allergies Allergy/AdvReac Type Severity Reaction Status Date / Time bee venom protein (honey bee) Allergy Severe SHORTNESS Verified 07/09/22 19:03 OF BREATH carbamazepine AdvReac Severe severe flu Verified 07/09/22 19:03 like symptoms topiramate AdvReac Intermediate Depression Verified 07/09/22 19:03 ketorolac [From Toradol] AdvReac Unknown Unknown Verified 07/09/22 19:03 Home Medications Medication Instructions Recorded Confirmed Type amitriptyline 50 mg tablet 50 mg PO HS 06/15/21 07/09/22 History epinephrine 0.3 mg/0.3 mL 0.3 mg IM DIRECTED PRN Allergic 06/15/21 07/09/22 History injection, auto-injector Reaction pregabalin 200 mg capsule 200 mg PO TID 06/15/21 07/09/22 History duloxetine 30 mg capsule,delayed See Rx Instructions .Route .COMPLEX 07/09/22 07/09/22 History release voriconazole 200 mg tablet 200 mg PO BID 07/09/22 07/09/22 History voriconazole 50 mg tablet 150 mg PO BID 07/09/22 07/09/22 History Past Med/Surg History Medical History Abdominal pain Blastomycosis Hand laceration No pertinent family history Trigeminal neuralgia Viral meningitis Surgical History No pertinent past surgical history Social History Smoking Status: Former smoker Cigarettes Per Day: 10; Second Hand Exposure: No; Do You Dip or Chew Tobacco: No; Tobacco Cessation Education Requested by Patient: No Hx Alcohol Use: No Hx Substance Use: Yes Last Used Substance: Hours (ago) Last Used Substance Othe r:: Medical marijuana for stomach pain. Didn't help. Preferred Language: Colombian Communication Ability: Effective Secretarial Stenographer Required: No Beliefs That Will Affect Care: Restoration Restoration Beliefs: Buddhism. Current Living Situation: Other Current Living Situation Comment: Lives with friends. Other Information That Helps Us Care for You: No Feels Safe at Home: Yes Safety Concerns: Feels Safe At This Time Assistive Devices: Glasses Assistive Devices Comment: Glasses for reading. Review of Systems Review of Systems: Constitutional: chills x 2 days; no fever, weakness, fatigue, myalgias, anorexia, night sweats Eyes: No diplopia, no worsening or blurred vision ENT: normal hearing, no trouble swallowing Respiratory: No cough, sputum, dyspnea at rest or on exertion Cardiovascular: No chest pain, tightness or palpitations Abdomen: abdominal pain, nauseam vomiting, diarrhea x 2 days; no melena, hematochezia, hemoptysis : Denies dysuria, hematuria, increased urgency/frequency, urinary retention Musculoskeletal: No joint pain, calf pain, swelling Neurologic: No weakness, numbness/tingling, or balance problems Psychiatric: No anxiety or depression Skin: No rash or itch Physical Exam Physical Exam: General: awake, alert, no apparent distress Head: Normocephalic, atraumatic ENT: PERRL, EOMI, no pharyngeal exudate, mucous membranes moist Chest: Clear to auscultation, on room air, no adventitious breath sounds Cardiac: Regular rate and rhythm, no murmur, no JVD, normal peripheral pulses, good capillary refill Abdominal: NABS x 4 quadrants, soft, nontender to palpation, no rebound, guarding or tenderness Extremities: Normal inspection, no peripheral edema or erythema, calfs nontender to palpation Psych: Normal mood and affect Neuro: AAO x 3, strength intact bilaterally and rated 5/5, no motor deficits, speech is clear, no peripheral sensory deficits Skin: no rash or erythema Results & Data Results & Data ([facility]) Vital Signs (Past 12 Hours) Vital Signs Temp Pulse Pulse Resp BP BP Pulse Ox 07/09/22 17:32 90 18 120/86 100 07/09/22 15:40 36.2 C L 65 19 142/56 H 100 O2 Del Method 07/09/22 17:32 Room Air 07/09/22 15:40 Room Air Laboratory Results Abnormal lab results 07/09/22 07/09/22 07/09/22 Range/Units 16:34 16:34 17:05 WBC 15.19 H (4.8-10.8) K/ul Neut # (Auto) 13.60 H (1.4-6.5) K/uL Lymph # (Auto) 0.79 L (1.2-3.4) K/uL Immature Gran # (Auto) 0.05 H (0.00-0.02) K/uL VBG pH (7.36-7.41) VBG pCO2 (38-50) mmHg POC Total CO2 22 L (24-31) mmol/L POC BUN 6 L (7-18) mg/dl BUN/Creatinine Ratio 9.6 L (10-20) Glucose 187 H (70-99(Fasting)) mg/dl POC Glucose (other) 172 H (70-99) mg/dl POC Ioniz Calcium Eliceo 1.06 L (1.12-1.32) mmol/l Alkaline Phosphatase 171 H (34-104) U/L Lipase 8 L (11-82) U/L Urine pH (4.5-7.5) Ur Specific Gunpowder (1.000-1.030) Urine Protein (Negative) Urine Ketones (Negative) Urine WBC (Auto) (0-5) /hpf U Hyaline Cast (Auto) (0-5) /lpf U Epithel Cells (Auto) (0-5) /lpf Urine Bacteria (Auto) (Negative) Urine Mucus (None Prsent) Salicylates (3.0-30) mg/dl Acetaminophen (10-30) ug/ml 07/09/22 07/09/22 07/09/22 Range/Units 18:13 18:13 19:39 WBC (4.8-10.8) K/ul Neut # (Auto) (1.4-6.5) K/uL Lymph # (Auto) (1.2-3.4) K/uL Immature Gran # (Auto) (0.00-0.02) K/uL VBG pH 7.54 H (7.36-7.41) VBG pCO2 25 L (38-50) mmHg POC Total CO2 (24-31) mmol/L POC BUN (7-18) mg/dl BUN/Creatinine Ratio (10-20) Glucose (70-99(Fasting)) mg/dl POC Glucose (other) (70-99) mg/dl POC Ioniz Calcium Eliceo (1.12-1.32) mmol/l Alkaline Phosphatase (34-104) U/L Lipase (11-82) U/L Urine pH 8.5 H (4.5-7.5) Ur Specific Gunpowder > 1.045 H (1.000-1.030) Urine Protein 1+ H (Negative) Urine Ketones 4+ H (Negative) Urine WBC (Auto) 5-10 H (0-5) /hpf U Hyaline Cast (Auto) 5-10 H (0-5) /lpf U Epithel Cells (Auto) >30 H (0-5) /lpf Urine Bacteria (Auto) 1+ H (Negative) Urine Mucus Present A (None Prsent) Salicylates < 3.0 L (3.0-30) mg/dl Acetaminophen < 3 L (10-30) ug/ml Diagnostic Findings Abdomen/Pelvis CT 07/09/22 16:[address] WITH IV CONTRAST CT DOSE: 839.62 mGy.cm HISTORY: Nausea. Vomiting. Generalized abdominal pain. TECHNIQUE: Multiaxial CT images of the abdomen and pelvis were performed following the use of intravenous contrast. A dose lowering technique was utilized adhering to the principles of ALARA. COMPARISON STUDY: Abdomen and pelvis CT 09/01/2013. PET CT 07/22/2021. FINDINGS: The lung bases are clear. No pneumoperitoneum. No pneumatosis. No suspicious lytic are blastic osseous lesions. There is mild motion artifact. Focal hypodensity within segment IVb of the liver favors focal fat. No definite hepatic or splenic masses. The adrenal glands, pancreas, and right kidney are unremarkable. Stable 6 mm hypodense lesion within the left kidney. This favors a cyst but is technically too small to characterize. No hydronephrosis. The bladder, uterus, bilateral adnexa are within normal limits. No retroperitoneal or pelvic lymphadenopathy. The main portal vein is patent. Normal caliber abdominal aorta. The gallbladder is mildly distended with diffuse gallbladder wall thickening/edema and pericholecystic fluid. There is a small amount of sludge within the gallbladder. An acute cholecystitis would be the diagnosis of exclusion. Trace pelvic free fluid. This may be physiologic. A few colonic diverticula. No evidence for acute diverticulitis. No bowel wall thickening or obstruction. Normal appendix. Fluid-filled nondilated colon. IMPRESSION: 1. The gallbladder is mildly distended with diffuse gallbladder wall thickening/edema and pericholecystic fluid. There is a small amount of sludge within the gallbladder. An acute cholecystitis would be the diagnosis of exclusion. 2. Fluid-filled nondilated colon. This may represent a diarrheal illness/gastroenteritis. 3. Normal appendix. 4. No evidence for a bowel obstruction. ACT 112: Negative or not required by law. Electronically signed by: Polo Clayton M.D. 07/09/2022 6:[address] 07/09/22 16:[address] DOSE: 773.57 mGy.cm HISTORY: confusion TECHNIQUE: Multiaxial CT images of the head were performed without the use of intravenous contrast. Automated exposure control was utilized for this study. A dose lowering technique was utilized adhering to the principles of ALARA. Comparison: Head CT 09/06/2013. Findings: The paranasal sinuses and mastoid air cells are clear. Prior suboccipital craniectomy. No calvarial fractures. The ventricles and sulci are within normal limits. There is no mass, hematoma, midline shift, or acute infarct. Impression: No acute intracranial abnormality. ACT 112: Negative or not required by law. Electronically signed by: Polo Clayton M.D. 07/09/2022 6:54 PM Chest X-Ray 07/09/22 16:59 XR chest 1V portable HISTORY: Altered mental status. Atypical chest pain. COMPARISON: Chest 07/29/2021. FINDINGS: The lungs are clear. Cardiac silhouette is normal in size. No pleural effusions. No pneumothorax. IMPRESSION: No acute process. ACT 112: Negative or not required by law. Electronically signed by: Polo Clayton M.D. 07/09/2022 6:08 PM Code Status & VTE Plan Code Status Full Code. Supervising Physician Co-Signing Physician Notes Attending addendum: I have physically seen this patient, have supervised the SHERRY's activities, and agree with the H&P unless as otherwise noted. Assessment and Plan: Abdominal pain- Differential of cholecystitis versus gastroenteritis CT abdomen pelvis notes distended gallbladder with sludge Order ultrasound abdomen and pelvis, and may need HIDA scan with gallbladder ejection fraction NPO except meds Cipro 40 mg IV every 12 hours Flagyl 5 mg IV every 8 hours Zofran 4 mg IV every 6 hours as needed Famotidine 20 mg IV every 12 hours General surgery consult Blastomycosis- Continue voriconazole 350 mg p.o. twice daily Trigeminal neuralgia- Continue amitriptyline, duloxetine and pregabalin Remaining orders and notations as noted PG Care Time/CCT Total # of Minutes Spent Total Time Spent with Patient: Total time spent is greater than 50% in coordination of care (as documented) at patient's floor/unit and/or counseling patient: Coding Level of Care Code 97325 INT INP/OBS CARE 2MIN Diagnoses Abdominal pain R10.9 Blastomycosis B40.9 Trigeminal neuralgia G50.0
[2022-07-09 20:34] LABS: Appearance Urine Clear (Clear); Bacteria Urine Automated 1+ (Negative); Bilirubin Urine Negative (Negative); Blood Urine Negative (Negative); Color Urine Yellow; Epithelial Cell Urine Auto >30 /lpf (0-5); Glucose Urine UA Negative (Negative); Ketones Urine 4+ (Negative); Leukocyte Esterase Urine Negative (Negative); Nitrite Urine Negative (Negative); RBC Urine Automated 0-4 /hpf (0-4); Specific Gravity Urine > 1.045 (1.000-1.030); Urobilinogen Urine Negative (Negative); pH Urine 8.5 (4.5-7.5)
[2022-07-09 20:38] LABS: Protein Urine 1+ (Negative)
[2022-07-09 20:54] LABS: Mucus Urine Present (None Prsent)
[2022-07-09 21:25] LABS: Amphetamines+Metham, Urine Neg (Neg); Barbiturates, Urine Neg (Neg); Benzodiazepine, Urine Neg (Neg); Cocaine, Urine Neg (Neg); MDMA (Ecstacy), Urine Neg (Neg); Methadone, Urine Neg (Neg); Opiate, Urine Pos (Neg); Phencyclidine, Urine Neg (Neg)
[2022-07-09] MEDS: LACTATED RINGER'S 1,000 ML IV SCH (22:13)
[2022-07-09] MEDS ORDERED: VORICONAZOLE 50 MG PO SCH (22:13)
[2022-07-09] MEDS ORDERED: ONDANSETRON INJ 2 MG/ML 2 ML VIAL IV PRN (22:13)
[2022-07-09] MEDS ORDERED: MoRPHine SULFATE 2 MG/ML CARP IV PRN (22:13)
[2022-07-09] MEDS: MoRPHine SULFATE 4 MG/ML 1 ML CARP\\VIAL IV PRN (22:48)
[2022-07-09] MEDS: AMITRIPTYLINE HCL 50 MG TAB PO SCH (23:59)
[2022-07-09] MEDS: DULoxetine HCL 30 MG CAP PO SCH (23:59)
[2022-07-09] MEDS: VORICONAZOLE 200 MG TABLET PO SCH (23:59)
[2022-07-10] MEDS: LACTATED RINGER'S 1,000 ML IV SCH ×2 (06:13→18:10)
[2022-07-10] MEDS: metroNIDAZOLE 500 MG/100 ML BAG IV SCH ×3 (06:20→21:29)
[2022-07-10] MEDS: MoRPHine SULFATE 4 MG/ML 1 ML CARP\\VIAL IV PRN ×3 (06:22→21:29)
[2022-07-10 06:26] LABS: Basophils # (auto) 0.04 K/uL (0-0.2); Basophils % (auto) 0.4 %; Eosinophils % (auto) 0.9 %; Hematocrit (blood only) 36.8 % (34.1-44.9); Hemoglobin 12.8 g/dl (12.0-16.0); Immature Granulocytes # (auto) 0.03 K/uL (0.00-0.02); Immature Granulocytes % (auto) 0.3 %; Lymphocytes # (auto) 1.16 K/uL (1.2-3.4); Lymphocytes % (auto) 10.5 %; Mean Corpuscular Hemoglobin 31.5 pg (25.0-34.0); Mean Corpuscular Hgb Conc 34.8 g/dL (32.0-36.0); Mean Corpuscular Volume 90.6 fL (80.0-100.0); Mean Platelet Volume 11.2 fL (9.4-12.3); Monocytes # (auto) 0.85 K/uL (0.24-0.82); Monocytes % (auto) 7.7 %; Neutrophils # (auto) 8.91 K/uL (1.4-6.5); Neutrophils % (auto) 80.2 %; Platelet Count 257 K/uL (130-400); RDW Coefficient of Variation 13.8 % (11.5-14.5); RDW Standard Deviation 45.5 fL (36.4-46.3); Red Blood Count 4.06 M/uL (3.93-5.22); White Blood Count 11.09 K/ul (4.8-10.8)
[2022-07-10 06:36] LABS: Albumin Level 3.6 gm/dl (3.4-5.0); Bilirubin,Total 0.6 mg/dl (0.2-1.0); Calcium 8.2 mg/dl (8.5-10.1); Potassium 3.2 mmol/L (3.5-5.1)
[2022-07-10 06:39] LABS: Albumin Globulin Ratio 1.6 (0.9-2); BUN Creatinine Ratio 8.8 (10-20); Creatinine Clr Calc Pharmacy 144.5 ml/min; Est GFR (African American) 130.7 ml/min; Est GFR (Non-African American) 112.7 ml/min; Globulin 2.2 gm/dl (2.5-4.0); Total Protein 5.8 gm/dl (6.0-8.3)
--- NOTE | 2022-07-10 07:25 | Ultrasound Report ---
US gallbladder HISTORY: 42 years-old Female abdominal pain . Acute right upper quadrant abdominal pain COMPARISON: CT abdomen and pelvis of same day TECHNIQUE: Multiple real-time sonographic images of the abdominal right upper quadrant were obtained assessing grayscale appearance and color flow FINDINGS: Unremarkable pancreas. The liver is within normal limits measuring 14 cm in length. Stone filled dist ended gallbladder with pericholecystic fluid and edematous gallbladder wall measuring up to 7 mm. The sonographic Garg sign was reported as negative. Normal common bile duct, 4 mm. The imaged right kidney is unremarkable without hydronephrosis. IMPRESSION: 1. Distended gallbladder with cholelithiasis, edematous wall thickening and pericholecystic fluid is suggestive of acute cholecystitis. 2. No biliary ductal dilation. ACT 112: Negative or not required by law. The above report was generated using voice recognition software. It may contain grammatical, syntax o r spelling errors. Electronically signed by: Mulugeta Berg M.D. 07/10/2022 7:23 AM
[2022-07-10] MEDS: CIPROFLOXACIN / D5W 200 MG/100 ML BAG IV SCH ×2 (07:29→20:24)
--- NOTE | 2022-07-10 08:33 | History & Physical Bridge Note ---
Date of Service July 10, 2022 History & Physical Bridge Note I have examined the patient, reviewed the History & Physical and in the interval since the performance of the History & Physical I have noted the following changes of clinical significance: no changes noted Discussed patient's imaging findings which is consistent with acute cholecystitis as is her clinical picture. We discussed laparoscopic cholecystectomy and the risks associated which include bleeding infection injury to a bile duct or bile leaks injury to other organs such as bowel DVT PE OH CVA etc. I have answered all of her questions. We will proceed later today with laparoscopic cholecystectomy. She agrees with the plan.
[2022-07-10] MEDS: DULoxetine HCL 30 MG CAP PO SCH ×2 (08:40→20:21)
[2022-07-10] MEDS: VORICONAZOLE 200 MG TABLET PO SCH ×2 (08:40→20:22)
[2022-07-10] MEDS: PREGABALIN 100 MG CAP PO SCH ×4 (08:40→20:22)
--- NOTE | 2022-07-10 09:03 | Anesthesiology Consultation ---
Date of Service July 10, 2022 Assessment & Plan Chart Review Chart Review: Acceptable Risk for Surgery and Patient NOT seen in Pre Admission Testing Consults Requested none History Surgery Operation Date: 07/10/22 12:55 Proposed Procedures p Laparoscopic Cholecystectomy Vs Open - Tomer Zaman, Height/Weight Height: 5 ft 6 in Weight: 92.703 kg Allergies Allergy/AdvReac Type Severity Reaction Status Date / Time bee venom protein (honey bee) Allergy Severe SHORTNESS Verified 07/09/22 19:03 OF BREATH carbamazepine AdvReac Severe severe flu Verified 07/09/22 19:03 like symptoms topiramate AdvReac Intermediate Depression Verified 07/09/22 19:03 ketorolac [From Toradol] AdvReac Unknown Unknown Verified 07/09/22 19:03 Medications Home Medications Medication Instructions Recorded Confirmed Last Taken amitriptyline 50 mg tablet 50 mg PO HS 06/15/21 07/09/22 07/08/22 epinephrine 0.3 mg/0.3 mL 0.3 mg IM DIRECTED PRN Allergic 06/15/21 07/09/22 Unknown injection, auto-injector Reaction pregabalin 200 mg capsule 200 mg PO TID 06/15/21 07/09/22 07/08/22 duloxetine 30 mg capsule,delayed See Rx Instructions .Route .COMPLEX 07/09/22 07/09/22 07/08/22 release voriconazole 200 mg tablet 200 mg PO BID 07/09/22 07/09/22 07/08/22 voriconazole 50 mg tablet 150 mg PO BID 07/09/22 07/09/22 07/08/22 Active Medications Generic Name Dose Route Start Last Admin Trade Name Freq PRN Reason Stop Dose Admin Amitriptyline HCl 50 mg 07/09/22 22:13 07/09/22 23:59 Amitriptyline Hcl 50 Mg Tab PO 08/08/22 22:12 50 mg HS LEYLA Administration Duloxetine HCl 60 mg 07/09/22 22:13 07/09/22 23:59 Duloxetine Hcl 30 Mg Cap PO 08/08/22 22:12 60 mg QPM LEYLA Administration Duloxetine HCl 30 mg 07/10/22 09:00 07/10/22 08:40 Duloxetine Hcl 30 Mg Cap PO 08/09/22 08:59 30 mg QAM LEYLA Administration Lactated Ringer's 1,000 mls @ 125 mls/hr 07/09/22 22:13 07/10/22 06:13 Lr IV 08/08/22 22:12 125 mls/hr .Q8H LEYLA Administration Ciprofloxacin Lactate 200 mg in 100 mls @ 100 mls/hr 07/10/22 08:00 07/10/22 08:37 Cipro / D5w IV 07/20/22 07:59 Infused Q12H LEYLA Infusion Protocol Metronidazole 500 mg in 100 mls @ 100 mls/hr 07/10/22 06:00 07/10/22 07:27 Flagyl IV 07/20/22 05:59 Infused Q8H LEYLA Infusion Morphine Sulfate 4 mg 07/09/22 22:13 07/10/22 06:22 Morphine Sulfate 4 Mg/Ml 1 Ml Carp\Vial IV 07/23/22 22:12 4 mg Q4H PRN Administration severe pain Pregabalin 200 mg 07/09/22 22:13 07/10/22 08:40 Pregabalin 100 Mg Cap PO 08/08/22 22:12 200 mg TID LEYLA Administration Voriconazole 400 mg 07/09/22 22:13 07/10/22 08:40 Voriconazole 200 Mg Tablet PO 07/16/22 22:12 400 mg BID LEYLA Administration NPO Date Last Intake of Fluids: 07/09/22 Time Last Intake of Fluids: 23:59 Date Last Intake of Solids: 07/09/22 Time Last Intake of Solids: 23:59 Past Medical History Medical History Abdominal pain Blastomycosis Hand laceration No pertinent family history Trigeminal neuralgia Viral meningitis Past Surgical History Surgical History No pertinent past surgical history Social History Smoking Status: Former smoker tobacco type: cigarettes Smoking cigarettes per day: 10 Do You Dip or Chew Tobacco: No Hx Alcohol Use: No Hx Substance Use: Yes substance use type: marijuana Last Used Substance: Hours (ago) Last Used Substance Other:: Medical marijuana for stomach pain. Didn't help. Physical Exam Vital Signs Last Vital Signs Temp 36.6 C 07/10/22 07:12 Pulse 71 07/10/22 07:12 Resp 17 07/10/22 07:12 BP 118/74 07/10/22 07:12 Pulse Ox 99 07/10/22 07:12 O2 Del Method 07/10/22 07:12 Testing Laboratory Results 07/10/22 05:22 07/10/22 05:22 PT 11.3 Seconds (9.0-12.0) 07/09/22 18:13 INR 1.1 (0.9-1.1) 07/09/22 18:13 APTT 21.3 Seconds (21.0-31.0) 07/09/22 18:13 Urine Color Yellow 07/09/22 19:39 Urine Appearance Clear (Clear) 07/09/22 19:39 Urine pH 8.5 (4.5-7.5) H 07/09/22 19:39 Ur Specific [place] > 1.045 (1.000-1.030) H 07/09/22 19:39 Urine Protein 1+ (Negative) H 07/09/22 19:39 Urine Glucose (UA) Negative (Negative) 07/09/22 19:39 Urine Ketones 4+ (Negative) H 07/09/22 19:39 Urine Nitrite Negative (Negative) 07/09/22 19:39 Ur Leukocyte Esterase Negative (Negative) 07/09/22 19:39 Urine WBC (Auto) 5-10 /hpf (0-5) H 07/09/22 19:39 Urine RBC (Auto) 0-4 /hpf (0-4) 07/09/22 19:39 U Hyaline Cast (Auto) 5-10 /lpf (0-5) H 07/09/22 19:39 U Epithel Cells (Auto) >30 /lpf (0-5) H 07/09/22 19:39 Urine Bacteria (Auto) 1+ (Negative) H 07/09/22 19:39 07/10/22 00:14 POC Ur Test Pending Electrocardiogram Date: 07/09/22 Findings: + NSR @ Pulmonary Function Test Date: 07/19/21 Findings: + DLCO (64%) normal spirometry with isolated dec dlco
[2022-07-10] MEDS ORDERED: ATROPINE SULFATE 0.1 MG/ML 10ML SYR IV PRN (14:20)
[2022-07-10] MEDS ORDERED: ePHEDrine sulfate 50 MG/ML AMP IV PRN (14:20)
[2022-07-10] MEDS ORDERED: ONDANSETRON INJ 2 MG/ML 2 ML VIAL IV PRN (14:20)
[2022-07-10] MEDS ORDERED: fentaNYL citrate 100 MCG/2 ML VIAL ONE ×3 (14:51→16:13)
[2022-07-10] MEDS ORDERED: MIDAZOLAM HCL 1 MG/ML 2ML VIAL ONE (14:51)
[2022-07-10] MEDS ORDERED: PROPOFOL IV EMULSION 10 MG/ML 20 ML VIAL IV ONE ×2 (14:53→15:37)
[2022-07-10] MEDS ORDERED: ONDANSETRON INJ 2 MG/ML 2 ML VIAL ONE (14:53)
[2022-07-10] MEDS ORDERED: LIDOCAINE 2% MPF LOCAL 5 ML VIAL INFIL ONE (14:53)
[2022-07-10] MEDS ORDERED: ROCURONIUM BROMIDE 10 MG/ML 5 ML VIAL IV ONE (14:53)
[2022-07-10] MEDS ORDERED: DEXAMETHASONE SOD INJ 4 MG/ML VIAL ONE ×2 (14:53→15:31)
[2022-07-10] MEDS ORDERED: SUGAMMADEX SODIUM 200 MG/2 ML VIAL IV ONE (14:55)
[2022-07-10] MEDS ORDERED: BUPIVACAINE/EPINEPHRINE 0.5% MPF 1:200,000 30 ML VIAL ONE (15:07)
--- NOTE | 2022-07-10 16:10 | Operative Report ---
PG Post Operative Report Pre & Post Diagnosis Operation Date: 07/10/22 12:55 Pre-Op Diagnosis: Acute Cholecystitis Post-Op Diagnosis: Acute Cholecystitis I identified the patient and participated in the time-out.: Yes Procedure Operation Date: 07/10/22 12:55 Actual Procedures p Laparoscopic Cholecystectomy (Not Applicable) - Tomer Zaman DO Surgeon Tomer Zaman DO Aircraft Engine Specialist pawan Leigh Estimated Blood Loss 10 Findings Consistent with Post-Op Diagnosis Specimens gallbladder Description of Procedure After informed consent was obtained the patient was taken to the operating room and placed in the supine position. After successful intubation the abdomen was sterilely prepped and draped in usual fashion. A periumbilical incision was made with an 11 blade scalpel and carried down through the soft tissue using electrocautery. The anterior rectus fascia was opened using electrocautery and 2 #0 Vicryl stay sutures were placed. The peritoneum was elevated with hemostats and incised under direct vision using Metzenbaum scissors. A finger sweep was performed and a 12 mm Melendrez trocar was placed. The abdomen was insufflated to 18 mmHg. The laparoscope was inserted and the abdomen was examined in 360. The gallbladder was acutely inflamed but otherwise no gross abnormalities were identified. A subxiphoid 5 mm port and 2 right upper quadrant 5 mm ports were placed under direct vision. The patient was placed in a reverse Trendelenburg position and slightly airplaned to the left. The gallbladder was grasped and elevated superiorly and laterally. There was a lot of fluid around the wall of the gallbladder which was thickened. A [place] dissector was used to take down adhesions around the neck of the gallbladder. The cystic duct was identified and skeletonized. It was clipped twice proximally and once distally and transected using a laparoscopic scissor. In similar fashion the cystic artery was identified and skeletonized clipped and divided. There is also a posterior branch that was clipped and divided as well. The gallbladder was removed from the gallbladder fossa with electrocautery. It was placed into an Endo Catch bag. Thorough irrigation was performed. At the end of the procedure there was adequate hemostasis and no evidence of any bile leaks. A final look around the abdomen showed no other abnormalities. The camera incision had to be extended because of the size of the gallbladder. The gallbladder and trochars were all removed and the abdomen was desufflated. The fascia of the camera port was closed using 0 Vicryl in multiple simple interrupted fashion. All the wounds were irrigated and closed using 4-0 Monocryl. Marcaine was injected around them for postoperative analgesia and skin glue used as a dressing. The patient was awaken extubated and transferred to recovery in stable condition. My physician's assistant paralegal was present throughout the entire case... helped with prepping the patient. With exposure for trocar placement, as well as retracted the gallbladder throughout the case and also assisted with wound closure and dressing placement. I attest to the content of the Intraoperative Record and any orders documented therein. Any exceptions are noted below.
[2022-07-10] MEDS: fentaNYL citrate 100 MCG/2 ML VIAL IV PRN ×4 (16:27→16:45)
[2022-07-10] MEDS ORDERED: HYDROmorphone INJ 2 MG/ML SYR/VIAL IV PRN (16:55)
[2022-07-10] MEDS ORDERED: HYDROmorphone INJ 0.5 MG/0.5 ML SYR ONE ×2 (16:55→17:10)
--- NOTE | 2022-07-10 17:33 | Anesthesiology Progress Note ---
Date of Service July 10, 2022 Anesthesia Post Procedure Vital Signs Vital Signs: Temp Pulse Pulse Resp BP BP Pulse Ox 07/10/22 17:10 77 18 130/76 97 07/10/22 17:00 70 24 134/79 97 07/10/22 16:50 83 22 136/83 97 07/10/22 16:30 86 20 136/80 95 07/10/22 16:40 81 20 135/87 100 07/10/22 16:20 75 14 131/72 95 07/10/22 16:17 36.1 C L 87 13 134/79 96 07/10/22 14:10 36.7 C 67 20 118/75 97 07/10/22 07:12 36.6 C 71 17 118/74 99 07/09/22 22:09 07/09/22 22:09 07/09/22 22:09 07/09/22 22:09 36.5 C 61 14 153/89 H 96 07/09/22 21:56 07/09/22 21:00 86 18 136/81 96 Pulse Ox O2 Del Method O2 Del Method O2 Flow Rate 07/10/22 17:10 Room Air 07/10/22 17:00 Room Air 07/10/22 16:50 Room Air 07/10/22 16:30 Oxymask 3 07/10/22 16:40 Room Air 07/10/22 16:20 Oxymask 6 07/10/22 16:17 Oxymask 6 07/10/22 14:10 Room Air 07/10/22 07:12 Room Air 07/09/22 22:09 Room Air 07/09/22 22:09 Room Air 07/09/22 22:09 96 Room Air 07/09/22 22:09 Room Air 07/09/22 21:56 Room Air 07/09/22 21:00 Room Air Pain Intensity Lower Abdomen: Pain Intensity: 7 Transfer of Care Handoff Completed per policy Notes Mental Status: alert / awake / arousable and participated in evaluation Patient Amnestic to Procedure: Yes Nausea / Vomiting: adequately controlled Pain: adequately controlled Airway Patency, RR, SpO2: stable & adequate BP & HR: stable & adequate Hydration State: stable & adequate Anesthetic Complications: no major complications apparent and Pt Satisfied with anesthetic care
[2022-07-10] MEDS ORDERED: oxyCODONE HCL IR 5 MG TAB (IMMEDIATE RELEASE) PO PRN (17:59)
[2022-07-10] MEDS: AMITRIPTYLINE HCL 50 MG TAB PO SCH (20:21)
[2022-07-10] MEDS: oxyCODONE HCL IR 5 MG TAB (IMMEDIATE RELEASE) PO PRN (20:29)
[2022-07-10] MEDS ORDERED: MoRPHine SULFATE 2 MG/ML CARP IV STA ×2 (22:35→23:18)
--- NOTE | 2022-07-10 23:09 | Hospitalist Progress Note ---
Date of Service July 10, 2022 Assessment & Plan (1) Abdominal pain: Plan: - 2 days of abdominal pain, nausea, vomiting, and diarrhea after eating a Wegman[employer] salad two days ago. - WBC 15 with left shift, lactate 1.7. - CTAP: The gallbladder is mildly distended with diffuse gallbladder wall thickening/edema and pericholecystic fluid. There is a small amount of sludge within the gallbladder. An acute cholecystitis would be the diagnosis of exclusion. Fluid-filled nondilated colon. This may represent a diarrheal illness/gastroenteritis. - Diff dx at this point is gastroenteritis and/or cholecystitis. - Waiting for GB U/S to assist with definitive diagnosis. If cholecystitis is not definitively diagnosed on U/S, could consider HIDA scan. - Empirically placed on ciprofloxacin + Flagyl, and made NPO at midnight in case of OR tomorrow. - IVF, antiemetics and analgesics ordered. - Repeat CBC, CMP, lipase in AM. (2) Blastomycosis: Plan: - Abnormal lung mass biopsied in July negative for malignancy, + for blastomycosis. Is on voriconazole 350 mg BID. (3) Trigeminal neuralgia: Plan: - Continue amitriptyline, duloxetine, pregabalin. Plan - Admit to med/surg. - SCDs for VTE ppx. - Full Code. Admission and Anticipated Discharge Date Admission Date: July 09, 2022 Subjective Denies any active vomiting at this time No fevers or chills noted Physical Exam Physical Exam: Head and ENT no thyroid enlargement trachea midline Cardiovascular S1-S2 are normal no S3 Lungs bilateral air entry fair no wheezing Abdomen soft no rebound tenderness Extremity shows trace edema Neurologically no focal deficits Skin shows no rash no cyanosis Results & Data Results & Data ([facility]) Vital Signs (Past 12 Hours) Vital Signs Temp Pulse Pulse Resp BP BP Pulse Ox 07/10/22 21:18 36.5 C 65 18 119/74 96 07/10/22 20:05 36.8 C 76 16 122/73 96 07/10/22 19:01 36.6 C 74 18 114/74 98 07/10/22 18:33 36.7 C 87 17 132/92 98 07/10/22 18:00 36.6 C 79 18 114/69 97 07/10/22 17:40 77 15 106/77 96 07/10/22 17:30 75 12 124/75 97 07/10/22 17:20 36.3 C L 88 13 124/78 98 07/10/22 17:10 77 18 130/76 97 07/10/22 17:00 70 24 134/79 97 07/10/22 16:50 83 22 136/83 97 07/10/22 16:30 86 20 136/80 95 07/10/22 16:40 81 20 135/87 100 07/10/22 16:20 75 14 131/72 95 07/10/22 16:17 36.1 C L 87 13 134/79 96 07/10/22 14:10 36.7 C 67 20 118/75 97 O2 Del Method O2 Flow Rate 07/10/22 21:18 Room Air 07/10/22 20:05 Nasal Cannula 2 07/10/22 19:01 Nasal Cannula 2 07/10/22 18:33 Room Air 07/10/22 18:00 Nasal Cannula 2 07/10/22 17:40 Room Air 07/10/22 17:30 Room Air 07/10/22 17:20 Room Air 07/10/22 17:10 Room Air 07/10/22 17:00 Room Air 07/10/22 16:50 Room Air 07/10/22 16:30 Oxymask 3 07/10/22 16:40 Room Air 07/10/22 16:20 Oxymask 6 07/10/22 16:17 Oxymask 6 07/10/22 14:10 Room Air Laboratory Results Short CBC 07/10/22 Range/Units 05:22 WBC 11.09 H (4.8-10.8) K/ul Hgb 12.8 D (12.0-16.0) g/dl Hct 36.8 (34.1-44.9) % Plt Count 257 (130-400) K/uL BMP 07/10/22 05:22 Sodium 141 Potassium 3.2 L D Chloride 110 H Carbon Dioxide 24 BUN 5 L Creatinine 0.57 L Glucose 87 Calcium 8.2 L Liver Function 07/10/22 Range/Units 05:22 Total Bilirubin 0.6 (0.2-1.0) mg/dl AST 41 H (13-39) U/L ALT 25 (7-52) U/L Alkaline Phosphatase 149 H (34-104) U/L Albumin 3.6 (3.4-5.0) gm/dl PG Care Time/CCT Total # of Minutes Spent Total Time Spent with Patient: Total time spent is greater than 50% in coordination of care (as documented) at patient's floor/unit and/or counseling patient: Coding Level of Care Code 14573 SUB INP/OBS CARE 2/35MIN Diagnoses Abdominal pain R10.9 Blastomycosis B40.9 Trigeminal neuralgia G50.0
[2022-07-11] MEDS: oxyCODONE HCL IR 5 MG TAB (IMMEDIATE RELEASE) PO PRN ×5 (01:04→22:34)
[2022-07-11] MEDS: ACETAMINOPHEN 1,000 MG/100 ML VIAL IV PRN ×3 (01:04→22:34)
[2022-07-11] MEDS: LACTATED RINGER'S 1,000 ML IV SCH ×3 (01:55→17:50)
--- NOTE | 2022-07-11 02:03 | Billing Data ---
Date of Service July 11, 2022 Coding Level of Care Code 02783 INT INP/OBS CARE
[2022-07-11] MEDS: metroNIDAZOLE 500 MG/100 ML BAG IV SCH ×3 (05:15→21:25)
[2022-07-11 06:24] LABS: Hematocrit (blood only) 34.9 % (34.1-44.9); Hemoglobin 11.9 g/dl (12.0-16.0); Mean Corpuscular Hemoglobin 30.8 pg (25.0-34.0); Mean Corpuscular Hgb Conc 34.1 g/dL (32.0-36.0); Mean Corpuscular Volume 90.4 fL (80.0-100.0); Mean Platelet Volume 11.1 fL (9.4-12.3); Platelet Count 259 K/uL (130-400); RDW Coefficient of Variation 13.7 % (11.5-14.5); RDW Standard Deviation 45.8 fL (36.4-46.3); Red Blood Count 3.86 M/uL (3.93-5.22)
[2022-07-11 06:48] LABS: Basophils # (auto) 0.01 K/uL (0-0.2); Basophils % (auto) 0.1 %; Immature Granulocytes # (auto) 0.06 K/uL (0.00-0.02); Immature Granulocytes % (auto) 0.5 %; Lymphocytes # (auto) 0.28 K/uL (1.2-3.4); Lymphocytes % (auto) 2.3 %; Monocytes % (auto) 1.6 %; Neutrophils # (auto) 11.85 K/uL (1.4-6.5); Neutrophils % (auto) 95.5 %
[2022-07-11 06:52] LABS: Albumin Level 3.5 gm/dl (3.4-5.0); Bilirubin,Total 0.4 mg/dl (0.2-1.0); Potassium 3.7 mmol/L (3.5-5.1)
[2022-07-11 06:57] LABS: Albumin Globulin Ratio 1.7 (0.9-2); Creatinine Clr Calc Pharmacy 137.2 ml/min; Est GFR (African American) 128.5 ml/min; Est GFR (Non-African American) 110.9 ml/min; Globulin 2.1 gm/dl (2.5-4.0); Total Protein 5.6 gm/dl (6.0-8.3)
[2022-07-11] MEDS: PREGABALIN 100 MG CAP PO SCH ×3 (08:36→21:24)
[2022-07-11] MEDS: VORICONAZOLE 200 MG TABLET PO SCH ×2 (08:36→21:25)
[2022-07-11] MEDS: CIPROFLOXACIN / D5W 200 MG/100 ML BAG IV SCH ×2 (08:38→19:50)
[2022-07-11] MEDS: DULoxetine HCL 30 MG CAP PO SCH ×2 (08:38→21:24)
--- NOTE | 2022-07-11 09:45 | Electrocardiogram Report ---
Test Reason : Blood Pressure : / mmHG Vent. Rate : 063 BPM Atrial Rate : 063 BPM P-R Int : 132 ms QRS Dur : 070 ms QT Int : 464 ms P-R-T Axes : -06 029 003 degrees QTc Int : 474 ms Normal sinus rhythm Septal infarct , age undetermined Abnormal ECG When compared with ECG of 15-JUN-2021 17:44, Vent. rate has decreased BY 34 BPM Septal infarct is now Present T wave inversion now evident in Inferior leads Confirmed by Rico Hoyos ([id number]) on 07/11/2022 9:45:43 AM Referred By: REFERRED SELF Confirmed By:Rico Hoyos
[2022-07-11] MEDS ORDERED: KETOROLAC 30 MG/ML VIAL IV ONE (11:58)
[2022-07-11] MEDS: MoRPHine SULFATE 4 MG/ML 1 ML CARP\\VIAL IV PRN ×2 (12:18→19:46)
--- NOTE | 2022-07-11 13:50 | Surgery Progress Note ---
Date of Service July 11, 2022 Assessment & Plan (1) Hx laparoscopic cholecystectomy: Plan: Postoperative day #1 laparoscopic cholecystectomy We will give her a dose of Toradol for the umbilical pain Okay from our standpoint for discharge when okay with primary service. Admission and Anticipated Discharge Date Admission Date: July 09, 2022 Subjective Patient seen. Having some periumbilical pain but otherwise okay. Tolerating diet though not much appetite. Physical Exam Physical Exam: Alert and oriented no acute distress Her incisions are clean dry intact. Results & Data ([facility]) Vital Signs (Past 12 Hours) Vital Signs Temp Pulse Pulse Resp BP Pulse Ox Pulse Ox 07/11/22 11:30 36.5 C 82 14 148/88 H 98 07/11/22 08:00 95 07/11/22 07:19 36.7 C 72 16 127/78 95 07/11/22 03:12 36.5 C 67 18 146/82 H 97 O2 Del Method O2 Del Method 07/11/22 11:30 Room Air 07/11/22 08:00 Room Air 07/11/22 07:19 Room Air 07/11/22 03:12 Room Air PG Care Time/CCT Total # of Minutes Spent Total Time Spent with Patient: Total time spent is greater than 50% in coordination of care (as documented) at patient's floor/unit and/or counseling patient: Coding Level of Care Code 15387 Post Operative Follow-Up Diagnoses Hx laparoscopic cholecystectomy Z90.49
[2022-07-11] MEDS: AMITRIPTYLINE HCL 50 MG TAB PO SCH (21:24)
--- NOTE | 2022-07-11 22:56 | Hospitalist Progress Note ---
Date of Service July 11, 2022 Assessment & Plan (1) Abdominal pain: Plan: - 2 days of abdominal pain, nausea, vomiting, and diarrhea after eating a Wegman's salad two days ago. - WBC 15 with left shift, lactate 1.7. - CTAP: The gallbladder is mildly distended with diffuse gallbladder wall thickening/edema and pericholecystic fluid. There is a small amount of sludge within the gallbladder. An acute cholecystitis would be the diagnosis of exclusion. Fluid-filled nondilated colon. This may represent a diarrheal illness/gastroenteritis. - Diff dx at this point is gastroenteritis and/or cholecystitis. - Waiting for GB U/S to assist with definitive diagnosis. If cholecystitis is not definitively diagnosed on U/S, could consider HIDA scan. - Empirically placed on ciprofloxacin + Flagyl, and made NPO at midnight in case of OR tomorrow. - IVF, antiemetics and analgesics ordered. - Repeat CBC, CMP, lipase in AM. 07/11-patient s/p cholecystectomy pain still present Continue to provide analgesics for pain control (2) Blastomycosis: Plan: - Abnormal lung mass biopsied in July negative for malignancy, + for blastomycosis. Is on voriconazole 350 mg BID. (3) Trigeminal neuralgia: Plan: - Continue amitriptyline, duloxetine, pregabalin. Plan - Admit to med/surg. - SCDs for VTE ppx. - Full Code. Admission and Anticipated Discharge Date Admission Date: July 09, 2022 Subjective Patient seen. Having some periumbilical pain but otherwise okay. Tolerating diet though not much appetite. Physical Exam Physical Exam: Head and ENT no thyroid enlargement trachea midline Cardiovascular S1-S2 are normal no S3 Lungs bilateral air entry fair no wheezing Abdomen soft no rebound tenderness Extremity shows trace edema Neurologically no focal deficits Skin shows no rash no cyanosis Results & Data Results & Data ([facility]) Vital Signs (Past 12 Hours) Vital Signs Temp Pulse Pulse Resp BP Pulse Ox O2 Del Method 07/11/22 20:59 36.5 C 69 18 142/86 H 96 Room Air 07/11/22 16:32 36.6 C 68 18 144/88 H 97 Room Air 07/11/22 11:30 36.5 C 82 14 148/88 H 98 Room Air PG Care Time/CCT Total # of Minutes Spent Total Time Spent with Patient: Total time spent is greater than 50% in coordination of care (as documented) at patient's floor/unit and/or counseling patient: Coding Level of Care Code 59057 SUB INP/OBS CARE 235MIN Diagnoses Abdominal pain R10.9 Blastomycosis B40.9 Trigeminal neuralgia G50.0
[2022-07-12] MEDS: LACTATED RINGER'S 1,000 ML IV SCH ×3 (01:13→13:47)
[2022-07-12] MEDS: metroNIDAZOLE 500 MG/100 ML BAG IV SCH ×2 (05:42→16:03)
[2022-07-12 06:15] LABS: Albumin Level 3.9 gm/dl (3.4-5.0); Bilirubin,Total 0.4 mg/dl (0.2-1.0); Calcium 8.7 mg/dl (8.5-10.1); Potassium 3.7 mmol/L (3.5-5.1)
[2022-07-12 06:21] LABS: Albumin Globulin Ratio 1.7 (0.9-2); BUN Creatinine Ratio 6.7 (10-20); Creatinine Clr Calc Pharmacy 109.8 ml/min; Est GFR (African American) 112.4 ml/min; Est GFR (Non-African American) 96.9 ml/min; Globulin 2.3 gm/dl (2.5-4.0); Total Protein 6.2 gm/dl (6.0-8.3)
[2022-07-12] MEDS: ACETAMINOPHEN 1,000 MG/100 ML VIAL IV PRN ×2 (06:39→15:24)
[2022-07-12] MEDS: oxyCODONE HCL IR 5 MG TAB (IMMEDIATE RELEASE) PO PRN ×2 (06:39→19:31)
[2022-07-12] MEDS: VORICONAZOLE 200 MG TABLET PO SCH (08:44)
[2022-07-12] MEDS: DULoxetine HCL 30 MG CAP PO SCH (08:44)
[2022-07-12] MEDS: PREGABALIN 100 MG CAP PO SCH ×2 (08:44→15:18)
[2022-07-12] MEDS: CIPROFLOXACIN / D5W 200 MG/100 ML BAG IV SCH (08:49)
[2022-07-12 13:17] LABS: Codeine Urine NEGATIVE ng/mL (<50); Hydrocodone Urine NEGATIVE ng/mL (<50); Hydromor Urine NEGATIVE ng/mL (<50); Marijuana Quant, GCMS Urine >5000 ng/mL (<5); Morphine Urine 2000 ng/mL (<50); Norhydrocodone Conf Ur NEGATIVE ng/mL (<50); Noroxycodone Urine NEGATIVE ng/mL (<50); Oxycodone Urine NEGATIVE ng/mL (<50); Oxymorph Urine NEGATIVE ng/mL (<50)
--- NOTE | 2022-07-12 13:33 | Surgery Progress Note ---
Date of Service July 12, 2022 Assessment & Plan (1) Hx laparoscopic cholecystectomy: Plan: POD #2 lap get Okay to DC to home, surgery will sign off Wound care instructions, activity restrictions, and return precautions given Follow-up with Dr. Zaman in 2-week Admission and Anticipated Discharge Date Admission Date: July 09, 2022 Subjective 42-year-old female status post laparoscopic cholecystectomy, POD #2. Feeling good, tolerating diet. Physical Exam Constitutional: WD/WN, vitals as above Gastrointestinal (Abdomen): normal bowel sounds, soft, nontender, no hepatosplenomegaly Inspection/Auscultation: + abdominal surgical incision (No infection) Results & Data ([facility]) Vital Signs (Past 12 Hours) Vital Signs Temp Pulse Resp BP Pulse Ox O2 Del Method 07/12/22 12:10 36.6 C 79 17 106/78 97 Room Air 07/12/22 08:11 36.5 C 71 16 118/76 96 Room Air Laboratory Results Laboratory Results - last 24 hr 07/09/22 07/12/22 19:39 05:28 Sodium 140 Potassium 3.7 Chloride 106 Carbon Dioxide 27 Anion Gap 7 BUN 5 L Creatinine 0.75 Est Cr Clr Drug Dosing 109.8 Est GFR ( Amer) 112.4 Est GFR (Non-Af Amer) 96.9 BUN/Creatinine Ratio 6.7 L Glucose 115 H Calcium 8.7 Total Bilirubin 0.4 AST 54 H ALT 44 Alkaline Phosphatase 184 H Total Protein 6.2 Albumin 3.9 Globulin 2.3 L Albumin/Globulin Ratio 1.7 U Codeine Confrm GC/MS NEGATIVE Ur Morphine (GC/MS) 2000 H Ur Hydrocodone (GC/MS) NEGATIVE Ur Norhydrocodone NEGATIVE Ur Noroxycodone NEGATIVE Urine Oxycodone (GC/MS) NEGATIVE U Oxymorphone GC/MS NEGATIVE Ur Hydromorphone (GC/MS) NEGATIVE U Marijuana THC Carboxy >5000 H Drug Screen Comment SEE NOTE PG Care Time/CCT Total # of Minutes Spent Total Time Spent with Patient: Total time spent is greater than 50% in coordination of care (as documented) at patient's floor/unit and/or counseling patient: Coding Level of Care Code None Diagnoses Hx laparoscopic cholecystectomy Z90.49
--- NOTE | 2022-07-13 00:03 | Discharge Summary ---
Date of Service July 13, 2022 Admission HPI Per Admitting Provider Julia Arriaza is a 42 y/o female with a past medical history of blastomycosis, trigeminal neuralgia, migraine headaches, and tobacco use disorder is presenting today with nausea, vomiting, and abdominal pain both been going on for 2 days. She has noticed chills at home but no fevers. This all began 2 days ago after she ate a salad from [employer]. She ate it around 1 pm yesterday and several hours later woke up with a strong pain in he epigastric region and immediately vomited up the salad, undigested. There are no sick contacts at home, and she denies a previous history of similar symptoms after eating. She has not noticed that her stools are dark, bloody, or mame colored. On presentation, vital signs are within normal limits and stable. Labs notable for WBC of 15 with left shift, Lactate 1.7, alk phos 171. BSG 187. No electrolyte abnormalities. Renal function at baseline. Urine does not appear infected. Toxicology report pending. CT A/P shows the gallbladder that is mildly distended with diffuse gallbladder wall thickening and edema with pericholecystic fluid and a small amount of sludge within the gallbladder as well as a fluid-filled nondilated colon. Normal appendix, no evidence of bowel obstruction. Head CT and CXR unremarkable. Principal Diagnosis Acute cholecystitis Discharge Exam Head and ENT no thyroid enlargement trachea midline Cardiovascular S1-S2 are normal no S3 Lungs bilateral air entry fair no wheezing Abdomen soft no rebound tenderness Incision healing well as per surgery Extremity shows trace edema Neurologically no focal deficits Skin shows no rash no cyanosis Discharge Data Allergies Allergy/AdvReac Type Severity Reaction Status Date / Time bee venom protein (honey bee) Allergy Severe SHORTNESS Verified 07/09/22 19:03 OF BREATH carbamazepine AdvReac Severe severe flu Verified 07/09/22 19:03 like symptoms topiramate AdvReac Intermediate Depression Verified 07/09/22 19:03 ketorolac [From Toradol] AdvReac Unknown Unknown Verified 07/09/22 19:03 Consultations 07/09/22 19:27 Consult General Surgery Stat ED Decision to Admit Stat 07/09/22 22:13 Consult General Surgery Routine Procedures Performed Operation Date: 07/10/22 12:55 Actual Procedures p Laparoscopic Cholecystectomy (Not Applicable) - Tomer Zaman, Ordered Studies 07/09/22 16:58 CT abd pelvis IV con only Stat CT head/brain wo con Stat 07/09/22 19:48 US gallbladder Urgent Hospital Course (1) Abdominal pain: - 2 days of abdominal pain, nausea, vomiting, and diarrhea after eating a [employer] salad two days ago. - WBC 15 with left shift, lactate 1.7. - CTAP: The gallbladder is mildly distended with diffuse gallbladder wall thickening/edema and pericholecystic fluid. There is a small amount of sludge within the gallbladder. An acute cholecystitis would be the diagnosis of exclusion. Fluid-filled nondilated colon. This may represent a diarrheal illness/gastroenteritis. - Diff dx at this point is gastroenteritis and/or cholecystitis. - Waiting for GB U/S to assist with definitive diagnosis. If cholecystitis is not definitively diagnosed on U/S, could consider HIDA scan. - Empirically placed on ciprofloxacin + Flagyl, and made NPO at midnight in case of OR tomorrow. - IVF, antiemetics and analgesics ordered. - Repeat CBC, CMP, lipase in AM. 07/11-patient s/p cholecystectomy pain still present Continue to provide analgesics for pain control 07/12-patient continued to improve and evaluated by surgery Patient pain control much improved Activity restrictions and wound care provided by surgery Patient advised to follow-up with surgery in 1 week along with follow-up with PCP in 5 days (2) Blastomycosis: - Abnormal lung mass biopsied in July negative for malignancy, + for blastomycosis. Is on voriconazole 350 mg BID. (3) Trigeminal neuralgia: - Continue amitriptyline, duloxetine, pregabalin. Plan - Admit to med/surg. - SCDs for VTE ppx. - Full Code. Total Time Total Time Spent Total Time Spent (In Minutes): 27 Discharge Plan Discharge Items Patient Disposition: Home - Self-Care Reason For Visit: cholecystitis vs gastroenteritis Discharge Diagnosis: laparoscopic cholecystectomy Activity: Per Instructions section Lifting: No more than 10 pounds Bathing Comment: may shower; no soaking in tubs/pools Exercise/Sports: Wait until after follow-up appointment Driving/Machine Use: no driving while taking any narcotics for pain Non-emergency contact: Primary Care Provider and Surgeon Call non-emergency contact if: you have any medication questions, your symptoms worsen, your pain is not controlled, you have a fever, your temperature is above 101.5, your wound has increased redness, your wound has increased drainage and your wound pain has increased Follow-up/Referrals: Tomer Zaman DO [Surgeon] - (Please call to schedule follow up in clinic within 2 weeks ) Tess Mchugh DO [Primary Care Provider] - Diet: Regular Addtl Attending Provider Instructions: Pending Studies at Discharge: Yes Studies:: surgical pathology Stand-Alone Forms: My [facility], Work/School Release, Smoking Cessation Medications and DC Order Prescriptions: New tramadol 50 mg tablet 50 - 100 mg PO Q6H PRN (Reason: pain, for ongoing therapy, max 6tabs/day) Qty: 15 0RF Continued voriconazole 50 mg tablet 150 mg PO BID Rx Instructions: TOTAL DOSE 350 MG--TAKES WITH 200 MG TAB. voriconazole 200 mg tablet 200 mg PO BID Rx Instructions: TOTAL DOSE 350 MG--TAKES WITH 3-50 MG TAB.S duloxetine 30 mg capsule,delayed release(DR/EC) See Rx Instructions .ROUTE .COMPLEX Rx Instructions: 30 mg orally; TAKES 30 MG QAM, THEN 60 MG QPM. amitriptyline 50 mg tablet 50 mg PO HS epinephrine 0.3 mg/0.3 mL auto-injector 0.3 mg IM DIRECTED PRN (Reason: Allergic Reaction) pregabalin 200 mg capsule 200 mg PO TID Discharge Orders: Discharge Order (Routine); Ordered 07/12/22 Ordered By: Austin Robbins Admission Data Admit Date/Time: 07/09/22 20:52 Attending Provider: Kit Rehman Admit Provider: Kit Rehman Primary Care Provider: Tess Mchugh Other Providers: Tomer Zaman ; Kit Rehman Other Interventions: Discharge Summary Assessment (RN) Last Done: 07/12/22 19:24 Coding Level of Care Code HOSP INP/OBS DISCH 30 MIN/LESS Diagnoses Abdominal pain R10.9 Blastomycosis B40.9 Trigeminal neuralgia G50.0
== END 2022-07-12 20:44 | disposition home or self-care (01) ==
LOC: ED 15:21 → 3E 20:52 → SUATTDRO 20:52 → INTOOBSV 20:52 → 3E 21:56
DX: K80.10 Calculus of gallbladder with chronic cholecystitis without obstruction; Z79.899 Other long term (current) drug therapy; Z88.8 Allergy status to other drugs, medicaments and biological substances; B40.9 Blastomycosis, unspecified; Z91.030 Bee allergy status; R10.9 Unspecified abdominal pain; G50.0 Trigeminal neuralgia; R11.2 Nausea with vomiting, unspecified